=== PATIENT | female | born 1940 | race Caucasian/White ===

== ENCOUNTER → 2016-08-21 | Outpatient (CLI) | payer OTHER ==
[~2016-08-21] MED LIST: ACET-1138 PO; ASCO250T4 PO; CALC600T9 PO; CLOB-65 EXT; COEN30CA3 PO; FRRG PO; MAGN400T24 PO; MULTCAP42 PO; NCYSR50 PO; OMEP20TA PO; PERP2TAB6 PO; POLY335025 PO; RXC5 PO; SENNTAB23 PO; TRIA75TA53 PO; VERA240C2 PO; VITA100C4 PO; WARF1TAB PO
--- NOTE | 2016-08-21 14:17 | MAMMOGRAPHY REPORT ---
BILATERAL DIGITAL SCREENING MAMMOGRAM WITH CAD: 08/21/2016 CLINICAL HISTORY: Routine screening. Patient has no complaints. TECHNIQUE: Current study was also evaluated with a Computer Aided Detection (CAD) system. Bilatera l CC and MLO views were obtained. COMPARISON: Comparison is made to exams dated: 08/07/2015 mammogram, 02/17/2013 mammogram, 07/20/2014 mammogram, and 07/01/2011 mammogram - [facility]. BREAST COMPOSITION: There are scattered areas of fibroglandular density in both breasts. FINDINGS: No suspicious masses, calcifications, or areas of architectural distortion are noted in e ither breast. There has been no significant interval change compared to prior exams. Scattered bilat eral benign-appearing calcifications are not significantly changed. IMPRESSION: ACR BI-RADS CATEGORY 2: BENIGN There is no mammographic evidence of malignancy. A 1 year screening mammogram is recommended. The p atient will receive written notification of the results. Approximately 10% of breast cancers are not detected with mammography. A negative mammographic repor t should not delay biopsy if a clinically suggestive mass is present. Jess Allen M.D. ah/:08/21/2016 10:38:34 Bulk Mail Clerk: Clarice CONTRERAS(Tino)(Gabriela), [facility] letter sent: Normal 1/2 BI-RADS Code: ACR BI-RADS Category 2: Benign
== END | disposition home or self-care (01) ==
LOC: C.MAMM 10:00
PROVIDERS: ATTEND Family Medicine
DX: Z12.31 Encounter for screening mammogram for malignant neoplasm of breast (principal)

== ENCOUNTER → 2016-09-10 | Outpatient (CLI) | payer OTHER ==
[2016-09-10 12:58] LABS: BASO % 0.3 %; BASO ABS # 0.02 K/uL (0-0.2); COMPLETE YES; EOS % 2.6 %; HEMATOCRIT 45.7 % (37-47); IG% 0.2 %; LYMPH % 33.4 %; LYMPH ABS # 1.92 K/uL (1.2-3.4); MEAN CELL VOLUME 91.2 fL (80-100); MEAN CORPUSCULAR HEMOGLOBIN 30.3 pg (25-34); MEAN CORPUSCULAR HGB CONC 33.3 g/dl (32-36); MEAN PLATELET VOLUME 10.1 fL (7.4-10.4); MONO % 8.2 %; NEUT % 55.3 %; PLATELET COUNT 301 K/uL (130-400); RED BLOOD COUNT 5.01 M/uL (4.2-5.4); WHITE BLOOD COUNT 5.75 K/uL (4.8-10.8)
[2016-09-10 13:24] LABS: ALT/SGPT 24 U/L (12-78); AST/SGOT 19 U/L (15-37); BLOOD UREA NITROGEN 16 mg/dl (7-18); CALCIUM 9.3 mg/dl (8.5-10.1); CARBON DIOXIDE 29 mmol/L (21-32); CHLORIDE 100 mmol/L (98-107); CHOLESTEROL 260 mg/dl (0-200); CREATININE 0.97 mg/dl (0.60-1.20); GLUCOSE 112 mg/dl (70-99); POTASSIUM 3.7 mmol/L (3.5-5.1); SODIUM 138 mmol/L (136-145)
[2016-09-10 13:36] LABS: ALKALINE PHOSPHATASE 92 U/L (45-117); CHOLESTEROL/HDL RATIO 4.4; HDL CHOLESTEROL 59 mg/dl; LDL CHOLESTEROL CALCULATED 150 mg/dl; TRIGLYCERIDES 253 mg/dl (0-150); VERY LOW DENSITY LIPOPROT CALC 51 mg/dl
== END | disposition home or self-care (01) ==
LOC: C.LABPVFM 07:45
PROVIDERS: ATTEND Family Medicine
DX: F32.9 Major depressive disorder, single episode, unspecified (principal); I10 Essential (primary) hypertension; E78.00 Pure hypercholesterolemia, unspecified

== ENCOUNTER → 2017-03-14 | Outpatient (CLI) | payer OTHER ==
[2017-03-14 13:30] LABS: ALT/SGPT 23 U/L (12-78); AST/SGOT 18 U/L (15-37); BLOOD UREA NITROGEN 15 mg/dl (7-18); BUN/CREATININE RATIO 15.7 (10-20); CALCIUM 9.4 mg/dl (8.5-10.1); CARBON DIOXIDE 30 mmol/L (21-32); CHLORIDE 101 mmol/L (98-107); CHOLESTEROL 245 mg/dl (0-200); CREATININE 0.94 mg/dl (0.60-1.20); GLUCOSE 112 mg/dl (70-99); POTASSIUM 3.8 mmol/L (3.5-5.1); SODIUM 139 mmol/L (136-145); TRIGLYCERIDES 259 mg/dl (0-150); VERY LOW DENSITY LIPOPROT CALC 52 mg/dl
[2017-03-14 13:31] LABS: ALKALINE PHOSPHATASE 83 U/L (45-117); CHOLESTEROL/HDL RATIO 4.6; HDL CHOLESTEROL 53 mg/dl; LDL CHOLESTEROL CALCULATED 140 mg/dl
== END | disposition home or self-care (01) ==
LOC: C.LABPVFM 08:28
PROVIDERS: ATTEND Family Medicine
DX: R00.2 Palpitations (principal); E78.00 Pure hypercholesterolemia, unspecified; I10 Essential (primary) hypertension

== ENCOUNTER 2017-07-08 13:32 | Emergency (ER) | payer OTHER ==
[~2017-07-08] VITALS: Ht 152.4 cm; Wt 74.0 kg
[2017-07-08 13:34] VITALS: TEMP 36.4; Ht 152.4 cm; Wt 74.0 kg
--- NOTE | 2017-07-08 14:22 | EMERGENCY ROOM VISIT NOTE ---
History Report prepared by Dolores: Jesus Wagner Under the Supervision of: Dr. Omero Graham M.D. First contact with patient: 14:17 Chief Complaint: CONSTIPATION Stated Complaint: CONSTIPATION X 1 WEEK Nursing Triage Summary: pt ot the ED with 1 wk of no BM since her colonoscopy 1 wk ago pt has back and abd pain no n/v History of Present Illness The patient is a 77 year old female who presents to the Emergency Room with complaints of constipation for 1 week ago. She had a colonoscopy done 1 week ago and had a liquid bowel movement. She reports that she is taking Ibuprofen to manage the pain in her left knee. She endorses low back pain and limited PO intake. She denies nausea and vomiting. The patient reports she has tried an enema, Colace, and Miralax with no relief despite straining herself. Of note the patient has a history of arthritis and colon resection surgery. Source of History: patient Onset: 1 week ago Position: abdomen Quality: other (constipation for 1 week) Timing: constant Modifying Factors (Relieving): ibuprofen (manage pain in left knee) Associated Symptoms: + back pain (lower back pain), No nausea, No vomiting Note: limited per os intake Review of Systems See HPI for pertinent positives and negatives. A total of ten systems were reviewed and were otherwise negative. Past Medical & Surgical Medical Problems: (1) Hypercholesterolemia (2) Hypertension Hypertension, Hypercholesterolemia, bowel resection Family History Colon cancer, breast cancer, diabetes, arthritis Social History Smoking Status: Never Smoker Alcohol Use: occasionally Marital Status: Occupation Status: retired Current/Historical Medications Scheduled Ascorbic Acid (Ascorbic Acid), 1 TAB PO DAILY Aspirin (Aspirin Ec), 81 MG PO MWF Calcium Carbonate-Vitamin D (Calcium + D), 1 TAB PO DAILY Cyanocobalamin (Vitamin B-12), 1,000 MCG PO MF Docusate Sodium (Docusate Sodium), 1 CAP PO BID Ibuprofen (Advil), 200-600 MG PO DAILY Linaclotide (Linzess), 2 CAP PO BID Magnesium Oxide (Mag-Ox), 400 MG PO BID Metoprolol Tartrate (Lopressor) (Lopressor), 0.5 TAB PO BID Multivitamin (Multivitamin), 1 TAB PO DAILY Perphenazine-Amitriptyline (Perphenazine/Amitriptylin), 2-25 MG PO QID Polyethylene Glycol 3350 (Miralax), 17 GM PO BID Ranitidine (Zantac), 150 MG PO BID Triamterene/Hctz (Maxzide 75MG/50MG), 1 TAB PO DAILY Scheduled PRN Diclofenac Sodium (Topical) (Voltaren 1% Top Gel), 4 GM TOP QID PRN for Pain Allergies Coded Allergies: Morphine (Verified Allergy, Mild, RASH & HALLUCINATIONS--NO TRUE ALLERGY PER DR MARTINES, 07/08/17) Physical Exam Vital Signs Date Time Temp Pulse Resp B/P (MAP) Pulse Ox O2 Delivery O2 Flow Rate FiO2 07/08/17 21:37 67 154/78 96 07/08/17 18:47 78 21 172/81 96 Room Air 07/08/17 17:50 82 16 172/81 97 Room Air 07/08/17 16:21 83 07/08/17 15:35 83 19 191/101 98 Room Air 07/08/17 13:34 36.4 93 18 181/100 96 Room Air Physical Exam GENERAL: Awake, alert, uncomfortable appearing, in no distress HENT: Normocephalic, atraumatic. Oropharynx unremarkable. EYES: Normal conjunctiva. Sclera non-icteric. NECK: Supple. No nuchal rigidity. FROM. No JVD. RESPIRATORY: Clear to auscultation. CARDIAC: Regular rate, normal rhythm. Extremities warm and well perfused. Pulses equal. ABDOMEN: Soft, mild abdominal distension. No tenderness to palpation. No rebound or guarding. No masses. Mild lower abdominal discomfort. No peritoneal signs. RECTAL: Deferred. MUSCULOSKELETAL: Chest examination reveals no tenderness. The back is symmetrical on inspection without obvious abnormality. There is no CVA tenderness to palpation. No joint edema. LOWER EXTREMITIES: Calves are equal size bilaterally and non-tender. No edema. No discoloration. NEURO: Normal sensorium. No sensory or motor deficits noted. SKIN: No rash or jaundice noted. Medical Decision & Procedures ER Provider Diagnostic Interpretation: Radiology results as stated below per my review and radiologist interpretation: CHEST ONE VIEW PORTABLE CLINICAL HISTORY: Pain, radiating to the abdomen. Constipation. COMPARISON STUDY: 02/08/2014 FINDINGS: The cardiac and mediastinal contours are normal. There is no evidence of focal pulmonary consolidation. There is no evidence of failure. No pleural effusions are visualized.[ There is dense calcification of the mitral valve annulus. There is no free intraperitoneal air. IMPRESSION: No active disease in the chest. Electronically signed by: John Natarajan M.D. 07/08/2017 3:03 PM ABD/PELVIS IV CONTRAST ONLY CT DOSE: 629.09 mGycm HISTORY: Pain. Constipation. abd pain/constipation TECHNIQUE: Multiaxial CT images of the abdomen and pelvis were performed following the use of intravenous contrast. A dose lowering technique was utilized adhering to the principles of ALARA. COMPARISON STUDY: None. FINDINGS: Lung bases are clear. Liver spleen and pancreas are unremarkable. The kidneys enhance uniformly. Mild increase in fecal load throughout the colon. No evidence for fecal impaction. Bladder is midline. Anastomotic line mid sigmoid colon. Smaller of sludge and/or gravel within the gallbladder fundus. No biliary ductal distention. Bladder is midline. IMPRESSION: 1. Increased fecal load throughout the colon consistent with a component of fecal stasis. 2. Small amount of gravel and/or sludge within the inferior aspect of the gallbladder lumen. 3. Otherwise negative study. The above report was generated using voice recognition software. It may contain grammatical, syntax or spelling errors. Electronically signed by: Hernan Shelley M.D. 07/08/2017 4:23 PM Laboratory Results 07/08/17 15:00 Red Blood Count 4.24, Mean Corpuscular Volume 92.7, Mean Corpuscular Hemoglobin 30.9, Mean Corpuscular Hemoglobin Concent 33.3, Mean Platelet Volume 9.5, Neutrophils (%) (Auto) 67.5, Lymphocytes (%) (Auto) 23.0, Monocytes (%) (Auto) 5.9, Eosinophils (%) (Auto) 2.8, Basophils (%) (Auto) 0.5, Neutrophils # (Auto) 4.34, Lymphocytes # (Auto) 1.48, Monocytes # (Auto) 0.38, Eosinophils # (Auto) 0.18, Basophils # (Auto) 0.03 07/08/17 15:00 Test 07/08/17 15:00 07/08/17 15:11 White Blood Count 6.43 K/uL (4.8-10.8) Red Blood Count 4.24 M/uL (4.2-5.4) Hemoglobin 13.1 g/dL (12.0-16.0) Hematocrit 39.3 % (37-47) Mean Corpuscular Volume 92.7 fL (80-100) Mean Corpuscular Hemoglobin 30.9 pg (25-34) Mean Corpuscular Hemoglobin Concent 33.3 g/dl (32-36) Platelet Count 265 K/uL (130-400) Mean Platelet Volume 9.5 fL (7.4-10.4) Neutrophils (%) (Auto) 67.5 % Lymphocytes (%) (Auto) 23.0 % Monocytes (%) (Auto) 5.9 % Eosinophils (%) (Auto) 2.8 % Basophils (%) (Auto) 0.5 % Neutrophils # (Auto) 4.34 K/uL (1.4-6.5) Lymphocytes # (Auto) 1.48 K/uL (1.2-3.4) Monocytes # (Auto) 0.38 K/uL (0.11-0.59) Eosinophils # (Auto) 0.18 K/uL (0-0.5) Basophils # (Auto) 0.03 K/uL (0-0.2) RDW Standard Deviation 42.8 fL (36.4-46.3) RDW Coefficient of Variation 12.6 % (11.5-14.5) Immature Granulocyte % (Auto) 0.3 % Immature Granulocyte # (Auto) 0.02 K/uL (0.00-0.02) Anion Gap 8.0 mmol/L (3-11) Est Creatinine Clear Calc Drug Dose 35.0 ml/min Estimated GFR () 50.0 Estimated GFR (Non- 43.1 BUN/Creatinine Ratio 16.3 (10-20) Calcium Level 9.5 mg/dl (8.5-10.1) Total Bilirubin 0.3 mg/dl (0.2-1) Direct Bilirubin < 0.1 mg/dl (0-0.2) Aspartate Amino Transf (AST/SGOT) 18 U/L (15-37) Alanine Aminotransferase (ALT/SGPT) 21 U/L (12-78) Alkaline Phosphatase 97 U/L (45-117) Total Protein 7.2 gm/dl (6.4-8.2) Albumin 3.5 gm/dl (3.4-5.0) Lipase 258 U/L (73-393) Bedside Lactic Acid Venous 1.08 mmol/L (0.90-1.70) Laboratory results reviewed by me Medications Administered Medications (Trade) Dose Ordered Sig/Ruma Route Start Time Stop Time Status Last Admin Dose Admin Sodium Chloride 1,000 ml @ 999 mls/hr Q1H1M STAT IV 07/08/17 14:36 07/08/17 15:36 DC 07/08/17 15:34 999 MLS/HR Fentanyl Citrate (Fentanyl Inj) 50 mcg NOW STAT IV 07/08/17 14:36 07/08/17 14:38 DC 07/08/17 15:33 50 MCG Metoclopramide HCl (Reglan Inj) 10 mg NOW STAT IV 07/08/17 17:18 07/08/17 17:19 DC 07/08/17 17:50 10 MG Miscellaneous Medication (Milk And Molasses Enema) 1 ea NOW STAT MT 07/08/17 17:18 07/08/17 17:19 DC 07/08/17 18:46 1 EA ED Course 1512: I reviewed the patient's labs. 2028: I spoke to the mattress spring encaser about the patient's insurance coverage. Medical Decision I reviewed the patient's past medical history, medications, and the nursing notes as described above. The patient's presentation and history were concerning for bowel obstruction, ischemic bowel, and constipation. Patient is a 77-year-old woman with a past medical history of prior bowel resection status post reanastomosis remotely presents emergency Department with 1 week of constipation after having a colonoscopy per history of present illness. On arrival the patient is uncomfortable, but in no acute distress, afebrile with stable vital signs. He is mild abdominal distention but abdomen is soft, lower abdominal discomfort but no discrete tenderness or peritoneal signs. Lactate within normal limits. Labs otherwise unremarkable including WBC within normal limits. CT demonstrates "increased fecal load throughout the colon consistent with a component of fecal stasis." Thus, milk and molasses enema ordered. Subsequently patient was able to have small BM but with only marginal relief. Given reassuring w/u, no criteria for admission at this time. Patient was reassured that her enema may need more time to take effect and so will d/c with plan for patient return if she does not feel improvement tomorrow. Findings and plan for follow-up reviewed with patient. Patient agreeable and d/c'd per discharge instructions. Impression Primary Impression: Constipation Scribe Attestation The scribe's documentation has been prepared under my direction and personally reviewed by me in its entirety. I confirm that the note above accurately reflects all work, treatment, procedures, and medical decision making performed by me. Departure Information Dispostion Home / Self-Care Referrals Andreas Reeder M.D. (PCP) Patient Instructions ED Constipation, My [facility] Additional Instructions Please follow up with your primary care physician and your GI specialist in the next 1-3 days for re-evaluation. You were found to have constipation. Otherwise, your exam, CT scan, and lab results did not show signs of an emergent condition at this time. Continue to take Colace. Repeat enema at home if you do not improve after today's enema. Return to the emergency department for worsening symptoms as described in the accompanying instructions.
[2017-07-08] MEDS ORDERED: SODIUM CHLORIDE 0.9% 1000ML 1,000 ML IV STA (14:36)
[2017-07-08] MEDS ORDERED: FENTANYL CITRATE INJ 50 MCG/1 ML 2 ML VIAL IV STA (14:36)
[2017-07-08] MEDS ORDERED: OPTIRAY 320 IV PRN (15:00)
--- NOTE | 2017-07-08 15:04 | DIAGNOSTIC IMAGING REPORT ---
CHEST ONE VIEW PORTABLE CLINICAL HISTORY: Pain, radiating to the abdomen. Constipation. COMPARISON STUDY: 02/08/2014 FINDINGS: The cardiac and mediastinal contours are normal. There is no evidence of focal pulmonary consolidation. There is no evidence of failure. No pleural effusions are visualized.[ There is dense calcification of the mitral valve annulus. There is no free intraperitoneal air. IMPRESSION: No active disease in the chest. Electronically signed by: John Natarajan M.D. 07/08/2017 3:03 PM Dictated Date/Time: 07/08/2017 3:02 PM
[2017-07-08 15:31] LABS: BASO % 0.5 %; BASO ABS # 0.03 K/uL (0-0.2); COMPLETE YES; EOS % 2.8 %; HEMATOCRIT 39.3 % (37-47); IG% 0.3 %; LYMPH ABS # 1.48 K/uL (1.2-3.4); MEAN CELL VOLUME 92.7 fL (80-100); MEAN CORPUSCULAR HEMOGLOBIN 30.9 pg (25-34); MEAN CORPUSCULAR HGB CONC 33.3 g/dl (32-36); MEAN PLATELET VOLUME 9.5 fL (7.4-10.4); MONO % 5.9 %; NEUT % 67.5 %; PLATELET COUNT 265 K/uL (130-400); RED BLOOD COUNT 4.24 M/uL (4.2-5.4); WHITE BLOOD COUNT 6.43 K/uL (4.8-10.8)
[2017-07-08 15:41] LABS: ALT/SGPT 21 U/L (12-78); BLOOD UREA NITROGEN 20 mg/dl (7-18); BUN/CREATININE RATIO 16.3 (10-20); CALCIUM 9.5 mg/dl (8.5-10.1); CARBON DIOXIDE 29 mmol/L (21-32); CHLORIDE 102 mmol/L (98-107); CREATININE 1.21 mg/dl (0.60-1.20); GLUCOSE 106 mg/dl (70-99); POTASSIUM 3.8 mmol/L (3.5-5.1); SODIUM 139 mmol/L (136-145)
[2017-07-08 15:44] LABS: ALKALINE PHOSPHATASE 97 U/L (45-117); AST/SGOT 18 U/L (15-37)
[2017-07-08] MEDS ORDERED: ZNTT/150 PO (15:55)
[2017-07-08] MEDS ORDERED: ASCO100061 PO (15:55)
[2017-07-08] MEDS ORDERED: MAGN400T6 PO (15:55)
[2017-07-08] MEDS ORDERED: MULT-506 PO (15:55)
[2017-07-08] MEDS ORDERED: ASPI81TA28 PO (15:55)
[2017-07-08] MEDS ORDERED: DOCU100C31 PO (15:55)
[2017-07-08] MEDS ORDERED: SIMV10TA2 PO (15:55)
[2017-07-08] MEDS ORDERED: METO25TA56 PO (15:55)
[2017-07-08] MEDS ORDERED: DICL1GEL12 TOP (15:55)
[2017-07-08] MEDS ORDERED: GLUCTAB7 PO (15:55)
[2017-07-08] MEDS ORDERED: LINA72CA PO (16:22)
[2017-07-08] MEDS ORDERED: IBUP-1050 PO (16:22)
[2017-07-08] MEDS ORDERED: CYAN10005 PO (16:22)
[2017-07-08] MEDS ORDERED: POLY335019 PO (16:22)
--- NOTE | 2017-07-08 16:24 | DIAGNOSTIC IMAGING REPORT ---
ABD/PELVIS IV CONTRAST ONLY CT DOSE: 629.09 mGycm HISTORY: Pain. Constipation. abd pain/constipation TECHNIQUE: Multiaxial CT images of the abdomen and pelvis were performed following the use of intravenous contrast. A dose lowering technique was utilized adhering to the principles of ALARA. COMPARISON STUDY: None. FINDINGS: Lung bases are clear. Liver spleen and pancreas are unremarkable. The kidneys enhance uniformly. Mild increase in fecal load throughout the colon. No evidence for fecal impaction. Bladder is midline. Anastomotic line mid sigmoid colon. Smaller of sludge and/or gravel within the gallbladder fundus. No biliary ductal distention. Bladder is midline. IMPRESSION: 1. Increased fecal load throughout the colon consistent with a component of fecal stasis. 2. Small amount of gravel and/or sludge within the inferior aspect of the gallbladder lumen. 3. Otherwise negative study. The above report was generated using voice recognition software. It may contain grammatical, syntax or spelling errors. Electronically signed by: Hernan Shelley M.D. 07/08/2017 4:23 PM Dictated Date/Time: 07/08/2017 4:11 PM
[2017-07-08] MEDS ORDERED: MILK AND MOLASSES ENEMA PR STA (17:18)
[2017-07-08] MEDS ORDERED: METOCLOPRAMIDE HCL INJ 5 MG/ML 2 ML VIAL IV STA (17:18)
[2017-07-08] MEDS ORDERED: SOD PHOSPHATE/SOD BIPHOSPHATE ENEMA 132 ML BTL PR STA (21:25)
[2017-07-08 21:37] VITALS: BP 154/78; PULSE 67; O2SAT 96
== END 2017-07-08 21:35 | disposition home or self-care (01) ==
LOC: C.EDB 13:33
DX: K59.00 Constipation, unspecified (principal); I10 Essential (primary) hypertension; E78.00 Pure hypercholesterolemia, unspecified; Z79.82 Long term (current) use of aspirin; Z79.899 Other long term (current) drug therapy; Z88.5 Allergy status to narcotic agent; Z80.0 Family history of malignant neoplasm of digestive organs; Z80.9 Family history of malignant neoplasm, unspecified; Z80.3 Family history of malignant neoplasm of breast; Z83.3 Family history of diabetes mellitus

== ENCOUNTER 2017-09-02 07:15 | Inpatient (IN) | payer OTHER ==
[2017-08-18 11:58] VITALS: BMI 32.0
--- NOTE | 2017-08-18 12:41 | PAT Medication Instructions ---
Service Date Aug 18, 2017. Current Home Medication List Acetaminophen (Tylenol), 1,000 MG PO BID Aspirin (Aspirin Ec), 81 MG PO MWF Cholecalciferol (Vitamin D3), 1 CAP PO QAM Cyanocobalamin (Vitamin B-12), 1,000 MCG PO QAM Diclofenac Sodium (Topical) (Voltaren 1% Top Gel), 4 GM TOP QID PRN for Pain Docusate Sodium (Docusate Sodium), 1 CAP PO BID Linaclotide (Linzess), 2 CAP PO QAM Metoprolol Tartrate (Lopressor) (Lopressor), 0.5 TAB PO BID Multivitamin (Multivitamin), 1 TAB PO QPM Perphenazine-Amitriptyline (Perphenazine/Amitriptylin), 2-25 MG PO QID Polyethylene Glycol 3350 (Miralax), 17 GM PO BID Polyvinyl Alcohol-Povidone (Op (Refresh), 1 DROP OPB QAM Ranitidine (Zantac), 150 MG PO BID Triamterene/Hctz (Maxzide 75MG/50MG), 1 TAB PO QAM [Magnesium], 250 MG PO QPM [Vitamin C], 1 TAB PO QAM Medication Instructions For Your Scheduled Surgery - Continue as directed: Aspirin (Aspirin Ec), 81 MG PO MWF - Hold the following medications 24 hours prior to surgery: Diclofenac Sodium (Topical) (Voltaren 1% Top Gel), 4 GM TOP QID PRN for Pain - Hold the following medications the morning of surgery: [Vitamin C], 1 TAB PO QAM Linaclotide (Linzess), 2 CAP PO QAM Docusate Sodium (Docusate Sodium), 1 CAP PO BID Polyethylene Glycol 3350 (Miralax), 17 GM PO BID Cholecalciferol (Vitamin D3), 1 CAP PO QAM Cyanocobalamin (Vitamin B-12), 1,000 MCG PO QAM Triamterene/Hctz (Maxzide 75MG/50MG), 1 TAB PO QAM - Take the following medications the morning of surgery with a sip of water OTHERWISE NOTHING TO EAT OR DRINK AFTER MIDNIGHT: Metoprolol Tartrate (Lopressor) (Lopressor), 0.5 TAB PO BID Perphenazine-Amitriptyline (Perphenazine/Amitriptylin), 2-25 MG PO QID Acetaminophen (Tylenol), 1,000 MG PO BID (may take if needed up to 4 hours prior to surgery) Ranitidine (Zantac), 150 MG PO BID Polyvinyl Alcohol-Povidone (Op (Refresh), 1 DROP OPB QAM - Take the following medications as scheduled the night before surgery: Multivitamin (Multivitamin), 1 TAB PO QPM [Magnesium], 250 MG PO QPM Docusate Sodium (Docusate Sodium), 1 CAP PO BID Metoprolol Tartrate (Lopressor) (Lopressor), 0.5 TAB PO BID Perphenazine-Amitriptyline (Perphenazine/Amitriptylin), 2-25 MG PO QID Polyethylene Glycol 3350 (Miralax), 17 GM PO BID Acetaminophen (Tylenol), 1,000 MG PO BID Ranitidine (Zantac), 150 MG PO BID If you have any questions please call us at [phone] or [phone] or [phone]
[2017-08-18 13:44] LABS: PTT PATIENT 26.1 SECONDS (21.0-31.0)
--- NOTE | 2017-08-28 08:25 | HISTORY & PHYSICAL EXAMINATION ---
DATE OF ADMISSION: 09/02/2017 CHIEF COMPLAINT: Left knee pain and instability. HISTORY OF PRESENT ILLNESS: This 77-year-old female well known to me from previous right knee replacement done about 3 years ago. She has done well from that side. She has long history of left knee pain and discomfort that has gotten worse over time. This also has become unstable with the fact that she has fallen a couple times due to her knee giving out. She has been treated extensively by Dr. Calhoun without adequate relief and she would like to proceed with knee replacement. The patient does have a lot of history of GI issues and a part of her colon resected. She comes in with some instructions from Dr. Albarran as far as her postoperative GI management. PAST MEDICAL HISTORY: 1. Hypertension. 2. Elevated cholesterol. 3. Irregular heartbeat. 4. Depression. 5. Intermittent anemia. 6. Arthritis. 7. Low back pain/sciatica 8. Gastroesophageal reflux disease. 9. Hiatal hernia. 10. Mild obesity with a BMI of 32. 11. Colon cancer, status post resection. PAST SURGICAL HISTORY: 1. Bowel resection. 2. Cyst removed from uterus. 3. Hysterectomy. 4. D&C. 5. Right total knee replacement done in March of 2014. ALLERGIES: MORPHINE WHICH CAUSES NAUSEA AND VOMITING AND RATIONAL HALLUCINATIONS. Not A TRUE ALLERGY, BUT SIDE EFFECTS. CURRENT MEDICINES: Include: 1. Once a day, vitamin 2. Vitamin B12. 3. Magnesium. 4. Stool softener. 5. Vitamin D3. 6. Linzess 145 mcg once a day. 7. Metoprolol half tablet twice a day. 8. Triamterne/hydrochlorothiazide 70/50 once a day. 9. Ranitidine twice a day. 10. Amanda aspirin times a week. 11. MiraLax, have a capsule twice a day. SOCIAL HISTORY: A 77-year-old white female who lives by herself. She is hoping to be discharged to [facility] postoperatively. REVIEW OF SYSTEMS: Negative for diabetes, neurologic problems, vascular problems, bleeding disorders. No chest pain or shortness of breath. No history of DVT or PE. She has had issues with chronic constipation managed by Dr. Albarran. PHYSICAL EXAMINATION: GENERAL: Reveals a healthy, pleasant elderly female. She looks to be in good health. HEENT: Benign. NECK: Supple. No lymphadenopathy. LUNGS: Clear to auscultation. HEART: Regular rate and rhythm. ABDOMEN: Soft, nontender, nondistended. EXTREMITIES: Grossly neurovascularly intact except as follows: Examination of the left knee reveals the patient walks with valgus alignment to her knee. It comes in using a cane. She has a small knee effusion. Range of motion is about 10 degrees short of full extension to 90 degrees of flexion with a pretty stiff knee. No pain with hip motion. X-RAYS: X-ray of the left knee reviewed. She has advanced left knee DJD. She has complete loss of her lateral joint space. She has valgus deformity to her knee. Right knee looks to be in good position. ASSESSMENT: A 77-year-old white female with advanced left knee degenerative joint disease unresponsive to conservative care. Also has quite a bit of instability in this knee. PLAN: We talked about treatment. She would like to have her left knee replaced. We will take her to the operating room and do a left total knee replacement. The risks and benefits of this procedure were explained to the patient including but not limited to DVT, PE, , infection, neurological injury, vascular injury, bleeding problems, pain, limited range of motion, stiffness, failure to relieve her symptoms, incomplete relief of symptoms, need for further surgery in the future, fracture, leg length inequality, nerve palsy, etc. The patient understands and desires to proceed. Informed consent was obtained. One of her biggest concerns was constipation. We will try and hold any oxycodone and hydrocodone and use tramadol and Toradol for pain control. Dr. Albarran sent a note saying no Senokot. She should take her MiraLax twice a day with juice and Linzess in the morning before meals. We will try and manage it that way. As far as discharge plans, she is hoping to be discharged to [facility] for a brief rehab stay.
[2017-09-02] VITALS (8 sets, daily range): BP systolic 106–151; BP diastolic 65–74; PULSE 74–92; TEMP 36.4–37; O2SAT 94–100; Ht 152.4 cm; Wt 74.0 kg
[~2017-09-02] VITALS: Ht 152.4 cm; Wt 74.0 kg
[~2017-09-02 07:15] MED LIST changes: -ACET-1138 PO; +ACET-1256 PO; +ACETAMINOPHEN 500 MG TAB PO SCH; -ASCO250T4 PO; +ASPI81TA28 PO; +ATROPINE SULFATE 0.1 MG/ML 5ML SYR IV PRN; +BUPIVACAINE LIPOSOME 266 MG, BUPIVACAINE/EPINEPHRINE INJ 50 ML, SODIUM CHLORIDE 0.9% PF... INFIL SCH; -CALC600T9 PO; +CEFAZOLIN 2000MG IV PUSH 10 ML IV SCH; +CHOL2000 PO; -CLOB-65 EXT; -COEN30CA3 PO; +CYAN10005 PO; +DICL1GEL12 TOP; +DOCU100C31 PO; +EpHEDrine SULFATE INJ 50 MG/ML AMP IV PRN; +FAMOTIDINE 20 MG TAB PO SCH; +FENTANYL CITRATE INJ 50 MCG/1 ML 2 ML VIAL IV PRN; -FRRG PO; +GABAPENTIN 300 MG CAP PO SCH; +HYDROmorphone INJ 1 MG/ML SYR IV PRN; +LABETALOL HCL IV 5 MG/ML 20ML IV PRN; +LACTATED RINGER'S 1000ML 1,000 ML IV SCH; +LACTATED RINGER'S 1000ML 500 ML IV SCH; +LACTATED RINGER'S 1000ML IV SCH; +LINA72CA PO; -MAGN400T24 PO; +MAGNESIUM PO; +METO25TA56 PO; +METOCLOPRAMIDE HCL 10 MG TAB PO SCH; +MULT-506 PO; -MULTCAP42 PO; -NCYSR50 PO; -OMEP20TA PO; +ONDANSETRON INJ 2 MG/ML 2 ML VIAL IV PRN; +PHENYLEPHRINE 100MCG/ML 5ML SYR IV PRN; +POLY335019 PO; -POLY335025 PO; +POLYSOL OPB; -RXC5 PO; -SENNTAB23 PO; +TRANEXAMIC ACID INJ 1,000 MG in SYRINGE 0 ML IV SCH; -VERA240C2 PO; -VITA100C4 PO; +VITAMIN C PO; -WARF1TAB PO; +ZNTT/150 PO
[2017-09-02] MEDS ORDERED: MIDAZOLAM HCL 1 MG/ML 2ML VIAL ONE ×2 (07:47→09:07)
[2017-09-02] MEDS ORDERED: FENTANYL CITRATE INJ 50 MCG/1 ML 2 ML VIAL ONE (07:47)
--- NOTE | 2017-09-02 08:29 | History & Physical Bridge Note ---
H&P Re-Evaluation Bridge Note: I have examined the patient, reviewed the History & Physical and in the interval since the performance of the History & Physical I have noted the following changes of clinical significance: No changes noted
[2017-09-02] MEDS ORDERED: BUPIVACAINE 0.5 % 5 MG/1 ML PF 10ML VIAL ONE (08:57)
[2017-09-02] MEDS ORDERED: BUPIVACAINE 0.25% 30 ML VIAL ONE (08:57)
[2017-09-02] MEDS ORDERED: BUPIVACAINE/EPINEPHRINE 0.25% 1:200,000 30 ML VIAL ONE (09:09)
[2017-09-02] MEDS ORDERED: BACITRACIN 50000 UNIT VIAL ONE (09:09)
[2017-09-02] MEDS ORDERED: SODIUM CHLORIDE 0.9% PF 50 ML VIAL ONE (09:09)
[2017-09-02] MEDS ORDERED: BUPIVACAINE LIPOSOME 1/3% 266 MG/20 ML VIAL INFIL ONE (09:09)
[2017-09-02] MEDS ORDERED: PROPOFOL IV EMULSION 10 MG/ML 20 ML VIAL IV ONE (10:00)
[2017-09-02] MEDS ORDERED: EpHEDrine SULFATE 50MG/5ML SYR ONE (10:00)
--- NOTE | 2017-09-02 11:25 | [facility] Post Operative Brief Note ---
Immediate Operative Summary Operative Date Sep 02, 2017. Pre-Operative Diagnosis Left knee degenerative joint disease Post-Operative Diagnosis same as preop Procedure(s) Performed Left total knee arthroplasty Surgeon Dr. Bustillos Operator Surgeon(s) Jose Carlos Parra PA-C Estimated Blood Loss 50 ml Findings Consistent with Post-Op Diagnosis Specimens A: Left knee bone and tissue Drains None Anesthesia Type MAC Spinal Regional Complication(s) none Disposition Accompanied Pt To Recover: no Disposition: Recovery Room / PACU
[2017-09-02] MEDS ORDERED: ZOLPIDEM TARTRATE 5 MG TAB PO PRN (11:30)
[2017-09-02] MEDS ORDERED: SILVER SULFADIAZINE 1% CR 50 GM JAR EXT PRN (11:30)
[2017-09-02] MEDS ORDERED: BISACODYL 10 MG SUPP PR PRN (11:30)
[2017-09-02] MEDS ORDERED: MAGNESIUM HYDROXIDE SUSP 30 ML UDC PO PRN (11:30)
[2017-09-02] MEDS ORDERED: METOCLOPRAMIDE HCL INJ 5 MG/ML 2 ML VIAL IV PRN (11:30)
[2017-09-02] MEDS ORDERED: ALUMINUM/MAGNESIUM/SIMETH (MAALOX MAX) 30 ML UDC PO PRN (11:30)
--- NOTE | 2017-09-02 11:59 | DIAGNOSTIC IMAGING REPORT ---
L KNEE 1 OR 2 VIEWS ROUTINE CLINICAL HISTORY: Degenerative arthritis. Postop study COMPARISON: Outside radiograph dated 06/12/2017 DISCUSSION: There are postsurgical changes of a total left knee arthroplasty and patellar resurfacing. The femoral and tibial components appear well seated. Overlying skin ronnie are evident. There is air within soft tissues consistent with recent surgery. IMPRESSION: Postsurgical changes of a total left knee arthroplasty. Electronically signed by: John Natarajan M.D. 09/02/2017 11:57 AM Dictated Date/Time: 09/02/2017 11:56 AM
--- NOTE | 2017-09-02 12:05 | Anesthesiology Progress Note ---
Anesthesia Post Op Note Date & Time Sep 02, 2017 at 12:04 Vital Signs Pain Intensity: 0 Vital Signs Past 12 Hours Date Time Temp Pulse Resp B/P (MAP) Pulse Ox O2 Delivery O2 Flow Rate FiO2 09/02/17 11:50 36.2 82 17 106/52 98 Nasal Cannula 2 09/02/17 11:40 79 19 111/56 98 Nasal Cannula 2 09/02/17 11:32 36.1 78 16 101/54 100 Oxymask 10 09/02/17 08:20 37 74 18 151/74 94 Room Air Notes Mental Status: alert / awake / arousable, participated in evaluation Nausea / Vomiting: adequately controlled Pain: adequately controlled Airway Patency, RR, SpO2: stable & adequate BP & HR: stable & adequate Hydration State: stable & adequate Neuraxial Anesthesia: was administered, sensory block is resolving Anesthetic Complications: no major complications apparent
--- NOTE | 2017-09-02 13:00 | OPERATIVE REPORT ---
DATE OF OPERATION: 09/02/2017 SURGEON: Reno Bustillos MD PANAMA HAT SMEARER: ALANNA Cleveland PREOPERATIVE DIAGNOSIS: Left knee degenerative joint disease. POSTOPERATIVE DIAGNOSIS: Same. PROCEDURE PERFORMED: Left cemented posterior stabilized total knee arthroplasty. COMPLICATIONS: None. ESTIMATED BLOOD LOSS: 50 mL. FLUID REPLACEMENT: 1500 mL crystalloid fluid replacement. TOURNIQUET TIME: 67 minutes at 300 mmHg. ANESTHESIA: Spinal with adductor canal block. DRAINS: None. SPECIMENS: Left knee sent for pathology. OPERATIVE INDICATIONS: The patient is a 77-year-old female, very independent, who has had a long history of knee problems. She underwent a right knee replacement about 3-1/2 years ago and has done pretty well from that. Over the year, she developed progressive and persistent pain, discomfort and instability in her left knee. She had a couple falling episodes as well due to her pain and instability. She failed conservative treatment and elected to proceed with operative treatment. OPERATIVE FINDINGS: Operative findings revealed advanced left knee DJD. She had extensive grade 4 changes of the lateral compartment, particularly in the lateral femoral condyle with complete eburnation of the lateral femoral condyle. The rest of her knee joint was pretty well preserved. She did have significant joint effusion and valgus alignment to her knee. OPERATIVE IMPLANTS: Operative implants consisted of: 1. Biomet Vanguard size 57.5 left posterior stabilized femoral component. 2. Biomet size 63 tibial tray. 3. A 10-mm posterior stabilized polyethylene insert. 4. A 28 x 8 all poly patella. OPERATIVE PROCEDURE: The patient was taken to the operating room, identified and placed on the operating table in the supine position. All contact areas were appropriately padded. IV antibiotics were provided by anesthesia team. A spinal anesthetic and adductor canal block had been provided in the holding area. Avelar catheter was placed in sterile fashion. The left thigh tourniquet was then placed and left lower extremity was then prepped and draped in the usual sterile fashion. Left leg was elevated and exsanguinated with Esmarch and tourniquet was placed at 300 mmHg. An anterior approach to the left knee was then performed through a longitudinal incision centered over the patella. Sharp dissection was carried out through the subcutaneous tissues down to the level of the extensor mechanism. A medial parapatellar incision was made. Some subperiosteal dissection was carried out medially. The fat pad was resected from beneath the patellar tendon. The lateral patellofemoral ligament was released. The patella was everted and knee was flexed. The osteophytes were taken off the distal femur. The ACL and PCL were then released from the distal femur and the tibia subluxated anteriorly. The external tibial alignment jig was then placed in the anterior face of the tibia and adjusted 14 mm medially. Proximal tibial cut was made to remove about a millimeter of bone from the most deficient aspect of the medial tibial plateau. The tibia was then sized to a size 63. Attention was then drawn to the femur. The distal femur was entered with a sharp drill. Intramedullary canal was suctioned. A left 5-degree valgus cutting guide was placed. Distal femoral cutting block was pinned in place. Distal femoral cut was made to take an additional 3 mm of bone off the distal femur. The femur was then sized to a size 57.5. We downsized this slightly. The AP cutting block was pinned parallel to the epicondylar axis, which was 6 degrees of external rotation. The anterior cut, anterior chamfer, posterior cut, and posterior chamfer cuts were made. Box cutting guide was placed and adjusted slightly lateral and the box cut was made. The knee was flexed. The remnants of the medial and lateral menisci were excised. The osteophytes were taken off the posterior aspect of the femur. I did release the popliteus in order to equalize the flexion space. I did bring the knee out into extension and the extension gap was already equal and I did not need to do any release of the IT band. A trial femoral component was placed. The tibial tray was pinned in maximum external rotation and drill and stem punch were used to create defect in proximal tibia for the tibial tray. We trialed the knee and a 10-mm insert was just too tight. It was tight in flexion and extension. Therefore, I elected to recut the tibia. All implants were removed. The external tibial alignment jig was then placed in the anterior face of the tibia and I took an additional 3 mm of bone off the proximal tibia. The tibial tray was then pinned and repunched. The femoral component was placed. A 10-mm insert was then placed and the knee was appropriately balanced with the 10-mm insert. She had full extension, slight hyperextension and good flexion. The ligament tension was ideal. Attention was then drawn to the patella. The patella was cleaned of all soft tissues. Patella thickness measured 19 mm and it was cut down to 12. It was sized to a size 28 patella. Lug holes were drilled for the 28 patella. Lateral osteophyte was removed. Patella button was placed. Knee was taken through range of motion and the patella tracked nicely with no thumbs test. Attention was then drawn toward placement of permanent components. All trial components were removed. A bone plug was placed in the distal femur to limit blood loss. A double batch of Palacos G cement was mixed. A left size 57.5 posterior stabilized femoral component, size 63 tibial tray, a 10-mm posterior stabilized polyethylene insert, and a 28 x 8 all poly patella then cemented in place. Knee was brought out into full extension until cement hardened. A final cement check was then performed. Pericapsular tissues were injected with a total of 100 mL of a combination of 20 mL of Exparel, 30 mL of normal saline, and 50 mL of 0.25% Marcaine with epinephrine. We injected a total of about 70 mL of this, as 30 mL had apparently been lost at the back table when the canister spilled. The patient did receive 1 gram of tranexamic acid. The tourniquet was then let down for a tourniquet time of 67 minutes. Hemostasis was assured with use of electrocautery. The wound was once again irrigated. The extensor mechanism was then closed with a combination of #1 PDS suture and #1 Vicryl suture in a [id number] fashion. Extensor mechanism was checked and found to be intact. The subcutaneous tissues were then closed with 2-0 Dexon suture in a buried interrupted fashion. Skin was closed skin ronnie. Leg was then cleaned and dried and a sterile dressing of Xeroform, 4 x 4, sterile cast padding and Jose Cruz bandage were applied. The patient then transferred to the recovery room in stable condition. The patient tolerated the procedure well with no complications. All needle and sponge counts were correct at the end of the operation. I attest to the content of the Intraoperative Record and any orders documented therein. Any exception s are noted below.
[2017-09-02] MEDS: D5W AND 1/2NSS + 20MEQ KCL 1,000 ML IV SCH ×2 (14:02→23:29)
[2017-09-02] MEDS: KETOROLAC TROMETHAMINE 15 MG/ML VIAL IV. SCH ×2 (15:40→20:07)
[2017-09-02] MEDS: ACETAMINOPHEN 500 MG TAB PO SCH ×2 (15:40→21:30)
[2017-09-02] MEDS: HYDROmorphone INJ 0.5 MG/0.5 ML SYR IV PRN (15:41)
[2017-09-02] MEDS ORDERED: TRANEXAMIC ACID INJ 1,000 MG in SODIUM CHLORIDE 0.9% 100ML 100 ML IV SCH (17:30)
[2017-09-02] MEDS: FERROUS GLUCONATE 324 MG TAB PO SCH (17:45)
[2017-09-02] MEDS: ONDANSETRON INJ 2 MG/ML 2 ML VIAL IV PRN (17:53)
[2017-09-02] MEDS: CEFAZOLIN IV 1,000 MG in SYRINGE 0 ML IV SCH (17:54)
[2017-09-02] MEDS ORDERED: DOCUSATE SODIUM 100 MG CAP PO SCH (21:00)
[2017-09-02] MEDS ORDERED: MAGNESIUM 250 MG PO SCH (21:00)
[2017-09-02] MEDS: MULTIVITAMIN TAB PO SCH (21:22)
[2017-09-02] MEDS: POLYETHYLENE (MIRALAX) 17 GM PACK PO SCH (21:23)
[2017-09-02] MEDS: RANITIDINE HCL 150 MG TAB PO SCH (21:24)
[2017-09-02] MEDS: METOPROLOL TARTRATE 25 MG TAB PO SCH (21:24)
[2017-09-02] MEDS: ASPIRIN 325 MG ECTAB PO SCH (21:25)
[2017-09-02] MEDS: DOCUSATE SODIUM 100 MG CAP PO SCH (21:26)
[2017-09-03] MEDS: CEFAZOLIN IV 1,000 MG in SYRINGE 0 ML IV SCH (01:32)
[2017-09-03] MEDS: KETOROLAC TROMETHAMINE 15 MG/ML VIAL IV. SCH ×4 (01:32→19:47)
[2017-09-03 04:01] VITALS: BP 98/59; PULSE 68; TEMP 36.9; O2SAT 93
[2017-09-03] MEDS: ACETAMINOPHEN 500 MG TAB PO SCH ×3 (05:37→22:02)
[2017-09-03 07:03] VITALS: BP 106/66; PULSE 64; TEMP 36.8; O2SAT 96
[2017-09-03] MEDS: POLYETHYLENE (MIRALAX) 17 GM PACK PO SCH ×2 (08:08→22:02)
[2017-09-03 08:10] LABS: HEMATOCRIT 35.1 % (37-47); HEMOGLOBIN 11.8 g/dL (12.0-16.0); MEAN CELL VOLUME 91.2 fL (80-100); MEAN CORPUSCULAR HEMOGLOBIN 30.6 pg (25-34); MEAN CORPUSCULAR HGB CONC 33.6 g/dl (32-36); MEAN PLATELET VOLUME 9.2 fL (7.4-10.4); PLATELET COUNT 251 K/uL (130-400); RED CELL DISTRIBUTION WIDTH CV 12.9 % (11.5-14.5); RED CELL DISTRIBUTION WIDTH SD 42.8 fL (36.4-46.3); WHITE BLOOD COUNT 8.47 K/uL (4.8-10.8)
--- NOTE | 2017-09-03 08:40 | PROGRESS NOTE ---
DATE: 09/03/2017 SUBJECTIVE: A 77-year-old female postop day #1 from a left knee replacement. She is doing well. Pain is controlled. No chest pain or shortness of breath. Not feeling dizzy or lightheaded. No abdominal pain. OBJECTIVE: VITAL SIGNS: Temperature 36.8. Vital signs stable. GENERAL: Physical examination reveals a pleasant, elderly female. She is sitting up at her bedside chair and looks comfortable. EXTREMITIES: Examination of the left leg reveals the dressing to be clean, dry and intact. She can dorsiflex and plantarflex her foot appropriately. She is neurologically intact. LABORATORY DATA: Pending. ASSESSMENT: A 77-year-old female postop day #1 from a left knee replacement, doing pretty well. Pain is controlled. She has got some bowel issues that she is quite concerned about, but things are going okay so far. PLAN: 1. DVT prophylaxis including thigh-high TEDs, SCDs, and aspirin twice a day. 2. PT/OT. Weightbear as tolerated. Left total knee protocol. 3. Pain control. Doing pretty well with current pain management. We are going to use Tylenol and tramadol to avoid confusion issues as well as try and avoid bowel issues. 4. GI motility dysfunction. She is on Colace as well as MiraLax. Unfortunately, we do not have Linzess so her daughter is going to bring that in for. 5. Disposition: She is hoping to be discharged to [facility] for a brief rehab stay. We will get social media marketer work on that this morning. AVA
[2017-09-03 08:42] LABS: CALCIUM 8.4 mg/dl (8.5-10.1); CREATININE 1.12 mg/dl (0.60-1.20); POTASSIUM 3.8 mmol/L (3.5-5.1)
[2017-09-03] MEDS ORDERED: [UNRECOGNIZED DRUG - OTHER] OPB SCH (09:00)
[2017-09-03] MEDS ORDERED: VITAMIN C PO SCH (09:00)
[2017-09-03] MEDS ORDERED: MULTIVITAMIN TAB PO SCH (09:00)
[2017-09-03] MEDS: CYANOCOBALAMIN 500 MCG TAB (VIT B-12) PO SCH (09:01)
[2017-09-03] MEDS: PANTOprazole SOD 40 MG TAB PO SCH (09:02)
[2017-09-03] MEDS: TRIAMTERENE/HCTZ 37.5/25MG TAB PO SCH (09:02)
[2017-09-03] MEDS: CHOLECALCIFEROL 1000 INTER.UNIT TAB PO SCH (09:02)
[2017-09-03] MEDS: RANITIDINE HCL 150 MG TAB PO SCH ×2 (09:02→21:59)
[2017-09-03] MEDS: FERROUS GLUCONATE 324 MG TAB PO SCH ×2 (09:03→17:45)
[2017-09-03] MEDS: DOCUSATE SODIUM 100 MG CAP PO SCH ×2 (09:03→21:59)
[2017-09-03] MEDS: METOPROLOL TARTRATE 25 MG TAB PO SCH ×2 (09:03→21:59)
[2017-09-03] MEDS: ASPIRIN 325 MG ECTAB PO SCH ×2 (09:03→21:59)
[2017-09-03] MEDS: TRAMADOL HCL 50 MG TAB PO PRN ×2 (09:27→19:45)
[2017-09-03] MEDS: D5W AND 1/2NSS + 20MEQ KCL 1,000 ML IV SCH (09:28)
--- NOTE | 2017-09-03 10:06 | Anesthesiology Progress Note ---
Anesthesia Post Op Note Date & Time Sep 03, 2017 at 10:06 Vital Signs Vital Signs Past 12 Hours Date Time Temp Pulse Resp B/P (MAP) Pulse Ox O2 Delivery O2 Flow Rate FiO2 09/03/17 08:00 Room Air 09/03/17 07:03 36.8 64 18 106/66 (79) 96 Room Air 09/03/17 04:01 36.9 68 16 98/59 (72) 93 Room Air 09/02/17 23:38 Room Air 09/02/17 22:50 37.0 92 16 109/65 (80) 96 Room Air Notes Mental Status: alert / awake / arousable, participated in evaluation Pt Amnestic to Procedure: Yes Nausea / Vomiting: adequately controlled Pain: adequately controlled Airway Patency, RR, SpO2: stable & adequate BP & HR: stable & adequate Hydration State: stable & adequate Anesthetic Complications: no major complications apparent
[2017-09-03] MEDS: HYDROmorphone INJ 0.5 MG/0.5 ML SYR IV PRN (12:34)
[2017-09-03] MEDS: ONDANSETRON INJ 2 MG/ML 2 ML VIAL IV PRN (12:58)
[2017-09-03 15:04] VITALS: BP 124/68; PULSE 67; TEMP 36.5; O2SAT 95
[2017-09-03] MEDS ORDERED: ULT50X PO (20:14)
[2017-09-03] MEDS ORDERED: ACET-24 PO (20:14)
[2017-09-03] MEDS ORDERED: ASPEC325 PO (20:14)
[2017-09-03] MEDS ORDERED: FRRG PO (20:14)
--- NOTE | 2017-09-03 20:17 | Discharge Instructions ---
Discharge Instructions Date of Service Sep 03, 2017. Admission Reason for Admission: Left Knee Degenerative Joint Disease Discharge Discharge Diagnosis / Problem: Left Knee Replacement Discharge Goals Goal(s): Decrease discomfort, Improve function, Increase independence, Improve disease control, Therapeutic intervention Activity Recommendations Activity Level: Assistance Required Therapies: Physical Therapy, Occupational Therapy Weightbearing Status: Left weightbearing . Additional Information Patient informed of condition: Yes Advance Directives: Yes DNR: No Level of Care: Acute Rehab Communicable Disease: No Prognosis: Improving Instructions / Follow-Up Instructions / Follow-Up ACTIVITY RECOMMENDATIONS: Physical Therapy: * You will go to physical therapy three times each week for four to six weeks after your surgery in order to regain your knee range of motion and to retrain your knee to work properly. * It is just as important to make sure you are getting your knee perfectly straight as it is to regain your knee bend. * Taking a pain pill an hour before therapy can help you have a more productive and comfortable therapy session. Home Exercise: * You were shown a series of exercises (heel props, heel slides, etc.) in the hospital. Do these exercises three to four times each day including the exercises you were shown in physical therapy. Walking: * Get up and walk several times each day. For the first four weeks, try not to stand or walk for more than one hour at a time. If you do stand or walk for more than one hour, you will not hurt anything, but your knee and leg will likely swell. * As you feel comfortable, you may change from the walker or crutches to a cane and then to independent walking. MEDICATIONS: New Medicine: * You will likely be taking one or more of these medications: 1. Tramadol - A quick and shorter-acting pain medication. Take one to two tablets every four to six hours to lessen your pain. 2. Iron Sulfate - Take two times each day for the month after surgery to help you replace the blood lost during surgery. 3. Aspirin - Thins your blood to lessen the chance of forming a blood clot. * The most common side effects of pain medicine and iron are nausea and constipation. If nausea or constipation is too much of a problem or if you have any questions about your new medicines or doses, call [facility] at . We will try to help you manage these issues. VERY IMPORTANT TO READ AND REVIEW" Pain: * The immediate post-operative period after knee replacement surgery is often quite painful. * You are given a prescription for pain medicine. You should take it, as directed, when you need it, especially before physical therapy and before going to bed. Pain that interferes with sleep is very common and can last several months. * You will likely need pain medicine for the first four to six weeks. It will not stop all of the pain. The pain will lessen and as you feel better, you may change to milder pain medicine such as Tylenol. * The most common side effects of pain medicine are nausea and constipation, so don't take more than you need. SPECIAL CARE INSTRUCTIONS: TEDs/Elastic Stockings: * The white elastic stockings help limit swelling and prevent blood clots from forming in your legs. The more you wear them, the more they work. * Wear them for six weeks after knee replacement surgery and four weeks after partial knee replacement. Prevention of Infection: * Take antibiotics one hour before any dental cleaning, dental work, urological procedure, gastrointestinal procedure or any invasive surgery in order to prevent your new joint from getting infected. * You may get the antibiotics from the doctor performing the procedure or you may call our office at before and we will call in a prescription to the pharmacy of your choice. Things to Watch For: * Drainage from the incision site that occurs more than one week after your surgery. * Severely increased knee/leg pain or swelling. * Increased redness at the incision site. * Fever above 102 degrees Fahrenheit. * Unusual chest pain or shortness of breath. * Unusual pain or burning with urination. Call [facility] at with any of the above problems or if you have any questions about your medicines or recovery. FOLLOW UP VISIT: Make an appointment to see your doctor for approximately two weeks after surgery for a progress check and staple removal by calling the office at . Current Hospital Diet Patient's current hospital diet: Regular Diet Discharge Diet Recommended Diet: Regular Diet Procedures Procedures Performed: Left total knee arthroplasty Pending Studies Studies pending at discharge: no Medical Emergencies . Who to Call and When: Medical Emergencies: If at any time you feel your situation is an emergency, please call [phone] immediately. . Non-Emergent Contact Non-Emergency issues call your: Surgeon . . "Provider Documentation" section prepared by Reno Bustillos. . Core Measure Problem Core Measures: None
[2017-09-03] MEDS: MULTIVITAMIN TAB PO SCH (21:59)
[2017-09-03 22:04] VITALS: BP 117/65; PULSE 74
[2017-09-03 23:34] VITALS: BP 122/72; PULSE 71; TEMP 37.1; O2SAT 93
[2017-09-04] MEDS: KETOROLAC TROMETHAMINE 15 MG/ML VIAL IV. SCH ×2 (02:06→09:33)
[2017-09-04] MEDS: ACETAMINOPHEN 500 MG TAB PO SCH (06:06)
[2017-09-04 07:11] VITALS: BP 137/77; PULSE 69; TEMP 36.7; O2SAT 93
[2017-09-04] MEDS: FERROUS GLUCONATE 324 MG TAB PO SCH (08:30)
[2017-09-04] MEDS: ONDANSETRON INJ 2 MG/ML 2 ML VIAL IV PRN (08:47)
[2017-09-04] MEDS: CYANOCOBALAMIN 500 MCG TAB (VIT B-12) PO SCH (09:33)
[2017-09-04] MEDS: DOCUSATE SODIUM 100 MG CAP PO SCH (09:33)
[2017-09-04] MEDS: ASPIRIN 325 MG ECTAB PO SCH (09:34)
[2017-09-04] MEDS: TRIAMTERENE/HCTZ 37.5/25MG TAB PO SCH (09:34)
[2017-09-04] MEDS: CHOLECALCIFEROL 1000 INTER.UNIT TAB PO SCH (09:34)
[2017-09-04] MEDS: PANTOprazole SOD 40 MG TAB PO SCH (09:35)
[2017-09-04] MEDS: RANITIDINE HCL 150 MG TAB PO SCH (09:35)
[2017-09-04] MEDS: POLYETHYLENE (MIRALAX) 17 GM PACK PO SCH (09:35)
[2017-09-04] MEDS: METOPROLOL TARTRATE 25 MG TAB PO SCH (09:35)
[2017-09-04] MEDS ORDERED: ONDA4TAB65 PO (11:15)
--- NOTE | 2017-09-04 11:28 | Discharge Instructions ---
Discharge Instructions Date of Service Sep 04, 2017. Admission Reason for Admission: Left Knee Degenerative Joint Disease Discharge Discharge Diagnosis / Problem: Left Knee Replacement Discharge Goals Goal(s): Decrease discomfort, Improve function, Increase independence, Improve disease control, Therapeutic intervention Activity Recommendations Activity Limitations: per Instructions/Follow-up section Weightbearing Status: Left weightbearing . Instructions / Follow-Up Instructions / Follow-Up ACTIVITY RECOMMENDATIONS: Physical Therapy: * You will go to physical therapy three times each week for four to six weeks after your surgery in order to regain your knee range of motion and to retrain your knee to work properly. * It is just as important to make sure you are getting your knee perfectly straight as it is to regain your knee bend. * Taking a pain pill an hour before therapy can help you have a more productive and comfortable therapy session. Home Exercise: * You were shown a series of exercises (heel props, heel slides, etc.) in the hospital. Do these exercises three to four times each day including the exercises you were shown in physical therapy. Walking: * Get up and walk several times each day. For the first four weeks, try not to stand or walk for more than one hour at a time. If you do stand or walk for more than one hour, you will not hurt anything, but your knee and leg will likely swell. * As you feel comfortable, you may change from the walker or crutches to a cane and then to independent walking. MEDICATIONS: New Medicine: * You will likely be taking one or more of these medications: 1. Tramadol - A quick and shorter-acting pain medication. Take one to two tablets every four to six hours to lessen your pain. 2. Iron Sulfate - Take two times each day for the month after surgery to help you replace the blood lost during surgery. 3. Aspirin - Thins your blood to lessen the chance of forming a blood clot. * The most common side effects of pain medicine and iron are nausea and constipation. If nausea or constipation is too much of a problem or if you have any questions about your new medicines or doses, call [facility] at . We will try to help you manage these issues. VERY IMPORTANT TO READ AND REVIEW" Pain: * The immediate post-operative period after knee replacement surgery is often quite painful. * You are given a prescription for pain medicine. You should take it, as directed, when you need it, especially before physical therapy and before going to bed. Pain that interferes with sleep is very common and can last several months. * You will likely need pain medicine for the first four to six weeks. It will not stop all of the pain. The pain will lessen and as you feel better, you may change to milder pain medicine such as Tylenol. * The most common side effects of pain medicine are nausea and constipation, so don't take more than you need. SPECIAL CARE INSTRUCTIONS: TEDs/Elastic Stockings: * The white elastic stockings help limit swelling and prevent blood clots from forming in your legs. The more you wear them, the more they work. * Wear them for six weeks after knee replacement surgery and four weeks after partial knee replacement. Prevention of Infection: * Take antibiotics one hour before any dental cleaning, dental work, urological procedure, gastrointestinal procedure or any invasive surgery in order to prevent your new joint from getting infected. * You may get the antibiotics from the doctor performing the procedure or you may call our office at before and we will call in a prescription to the pharmacy of your choice. Things to Watch For: * Drainage from the incision site that occurs more than one week after your surgery. * Severely increased knee/leg pain or swelling. * Increased redness at the incision site. * Fever above 102 degrees Fahrenheit. * Unusual chest pain or shortness of breath. * Unusual pain or burning with urination. Call [facility] at with any of the above problems or if you have any questions about your medicines or recovery. FOLLOW UP VISIT: Make an appointment to see your doctor for approximately two weeks after surgery for a progress check and staple removal by calling the office at . Current Hospital Diet Patient's current hospital diet: Regular Diet Discharge Diet Recommended Diet: Regular Diet Procedures Procedures Performed: Left total knee arthroplasty Pending Studies Studies pending at discharge: no Medical Emergencies . Who to Call and When: Medical Emergencies: If at any time you feel your situation is an emergency, please call [phone] immediately. . Non-Emergent Contact Non-Emergency issues call your: Surgeon . "Provider Documentation" section prepared by Reno Bustillos. . VTE Core Measure Inpt VTE Proph given/why not?: Other Anticoagulation, T.E.D. Stockings, SCD's
[2017-09-04 11:44] VITALS: BP 137/77; PULSE 69; TEMP 36.7; O2SAT 93
--- NOTE | 2017-09-04 11:47 | PROGRESS NOTE ---
DATE: 09/04/2017 SUBJECTIVE: A 77-year-old white female postop day 2 from a left knee replacement. She is doing well. Pain is controlled. No chest pain or shortness of breath. She has not had a bowel movement, but passing gas. No abdominal discomfort. OBJECTIVE: VITAL SIGNS: Temperature 36.7. Vital signs stable. PHYSICAL EXAMINATION: GENERAL: Reveals a pleasant elderly female. She is lying in bed and looks pretty comfortable. She is awake, alert and oriented. EXTREMITIES: Examination of the left leg reveals the incision to be clean, dry and intact. Calf is soft and supple. She can dorsiflex and plantarflex her foot appropriately. She is neurologically intact. ASSESSMENT: A 77-year-old white female postop day 2 from a left knee replacement, doing pretty well. Pain is controlled. She is neurologically intact. PLAN: 1. DVT prophylaxis including thigh-high TEDs, SCDs, and aspirin twice a day. 2. PT/OT. Weight bear as tolerated. Left total knee protocol. 3. Pain control, doing well with current pain regimen. We are going to stick to Tylenol and just use tramadol as needed. 4. Disposition: She was initially planning to go to [facility], but decided she wants to go to home with home health due to issues with concerns about catching the flu at [facility]. We will set her up for home health. Her daughter is going to come and stay with her. AVA
== END 2017-09-04 12:56 | disposition home health service (06) | DRG 470 ==
LOC: C.ACU 07:15 → C.MSW 08:50 → ENRESERV 12:16
PROVIDERS: ADMIT Orthopaedic Surgery Sports Medicine; ATTEND Orthopaedic Surgery Sports Medicine
PROC: 0SRD0J9 Replacement of Left Knee Joint with Synthetic Substitute, Cemented, Open Approach (ICD-10-PCS; principal; 2017-09-02 09:30)
DX: M17.12 Unilateral primary osteoarthritis, left knee (principal); K59.9 Functional intestinal disorder, unspecified; I10 Essential (primary) hypertension; E66.01 Morbid (severe) obesity due to excess calories; Z79.899 Other long term (current) drug therapy; Z96.651 Presence of right artificial knee joint; Z68.32 Body mass index [BMI] 32.0-32.9, adult; Z85.038 Personal history of other malignant neoplasm of large intestine

== ENCOUNTER 2024-02-12 07:18 | Observation (INO) ==
--- NOTE | 2024-01-01 15:25 | PAT Medication Instructions ---
Medication Instructions Date of Service January 01, 2024 Home Medications Medication Instructions Recorded metoprolol tartrate 25 mg tablet 12.5 mg (1/2 x 25 mg) PO BID #35 07/25/19 tabs Medication List: acetaminophen 500 mg tablet (Tylenol Extra Strength) 1,000 mg PO QID PRN Pain docusate sodium 100 mg capsule (Colace) 100 mg PO QPM magnesium oxide 400 mg PO QPM multivitamin 1 tab PO DAILY cyanocobalamin (vitamin B-12) 1,000 mcg tablet 1,000 mcg PO QAM aspirin 81 mg tablet,delayed release (Aspir-) 81 mg PO QAM ascorbic acid (vitamin C) 1,000 mg tablet 1 gm PO QAM metoprolol tartrate 25 mg tablet 12.5 mg (1/2 x 25 mg) PO BID Lactobacillus acidophilus 10 billion cell capsule (Probiotic) 10,000 mmu cells PO DAILY amitriptyline 25 mg tablet 25 mg PO HS coenzyme Q10 100 mg capsule (CoQ-10) 100 mg PO DAILY diltiazem HCl 120 mg capsule,extended release 24 hr 120 mg PO QAM rosuvastatin 10 mg tablet 10 mg PO QAM tolterodine 2 mg tablet (Detrol) 2 mg PO BID PRN bladder control triamterene 75 mg-hydrochlorothiazide 50 mg tablet (Maxzide) 1 tab PO QAM MEDICATION INSTRUCTIONS: ASK your prescriber and surgeon aspirin 81 mg tablet,delayed release (Aspir-) 81 mg PO QAM STOP taking 2 weeks before surgery coenzyme Q10 100 mg capsule (CoQ-10) 100 mg PO DAILY DO NOT take the morning of surgery tolterodine 2 mg tablet (Detrol) 2 mg PO BID PRN bladder control Lactobacillus acidophilus 10 billion cell capsule (Probiotic) 10,000 mmu cells PO DAILY triamterene 75 mg-hydrochlorothiazide 50 mg tablet (Maxzide) 1 tab PO QAM multivitamin 1 tab PO DAILY cyanocobalamin (vitamin B-12) 1,000 mcg tablet 1,000 mcg PO QAM ascorbic acid (vitamin C) 1,000 mg tablet 1 gm PO QAM Take morning of surgery With a small sip of water, OTHERWISE NOTHING TO EAT OR DRINK AFTER MIDNIGHT: acetaminophen 500 mg tablet (Tylenol Extra Strength) 1,000 mg PO QID PRN Pain metoprolol tartrate 25 mg tablet 12.5 mg (1/2 x 25 mg) PO BID diltiazem HCl 120 mg capsule,extended release 24 hr 120 mg PO QAM rosuvastatin 10 mg tablet 10 mg PO QAM Take evening before surgery acetaminophen 500 mg tablet (Tylenol Extra Strength) 1,000 mg PO QID PRN Pain amitriptyline 25 mg tablet 25 mg PO HS docusate sodium 100 mg capsule (Colace) 100 mg PO QPM magnesium oxide 400 mg PO QPM tolterodine 2 mg tablet (Detrol) 2 mg PO BID PRN bladder control metoprolol tartrate 25 mg tablet 12.5 mg (1/2 x 25 mg) PO BID Other Notes If you have any questions please call us at [phone] or [phone] or [phone] or [phone]
--- NOTE | 2024-01-19 11:22 | Anesthesiology Consultation ---
Date of Service January 19, 2024 Assessment & Plan (1) Encounter for pre-operative examination: Plan - upcoming [place] cardiology appointment with Dr. Barnes 02/03/[address] [facility]. - she reports intermittent episodes over the past year where she was being active and then developed visual changes, tachycardia and significant generalized weakness requiring her to rest for several hours until resolution. She denies seeking evaluation, states her [facility] PCP is aware. Case discussed in detail with Dr. Yanez who advised patient does need cardiology pre-operative evaluation. I contacted patient and relayed information on cardiology pre- operative evaluation, she verbalized understanding and agreement-confirmed she would like to have appointment with [place] cardiology in [facility] with physician only. Jocelyn with [place] office was contacted and confirmed above information and that she will call patient to confirm appointment. Surgeon's office made aware procedure is pending cardiology clearance. - Outpatient joint assessment: Patient is currently scheduled for inpatient pathway. If re-evaluated and patient/surgeon requests outpatient pathway, patient is not candidate for outpatient joint program from anesthesia standpoint. - Total time in direct patient care 65 minutes. I listened to her concerns regarding previous healthcare experiences and voiced empathy/support. 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 I offered she see an anesthesiologist for today's visit which she declined stating she felt comfortable with our visit. At the end of the visit I offered this again and she re-iterated comfort with our visit today and that she did not want an anesthesiologist to speak with her-stated her questions/concerns were well addressed to her satisfaction. I offered contact information for patient accounts/billing as she also indicated desire to further discuss financial options and she expressed interest-these were provided. She expressed appreciation for our conversations and the time spent assisting in her care. Chart Review Chart Review: Pending: Refer to Additional Notes / Consult section and Patient seen in Pre Admission Testing Teaching & Discussion Pre-Anesthesia Teaching/Discussion Notes: Instructed NPO after midnight before surgery, except medications with 15 cc of water. Medication instructions provided according to the PAT guidelines. History Surgery Operation Date: 02/12/24 10:05 Proposed Procedures p Right Total Shoulder Arthroplasty Reverse - Nayan Santiago DO Height/Weight Height: 4 ft 11 in Weight: 68.1 kg Allergies Allergy/AdvReac Type Severity Reaction Status Date / Time morphine Allergy Mild RASH & Verified 01/01/24 11:05 HALLUCINATIONS,VOMITING oxycodone AdvReac Severe VOMITING,DI Verified 01/01/24 11:05 ARRHEA Llizxbl-WFP-OoT Reductase AdvReac Mild MUSCLE Verified 01/01/24 11:05 Inhibitor ACHES [Ijljtmk-Guh-Usg Reductase Inhibitor] wheat AdvReac Mild DIARRHEA-AVOIDS Verified 01/01/24 11:05 WHEAT Medications Home Medications Medication Instructions Recorded Confirmed Last Taken acetaminophen 500 mg tablet 1,000 mg PO QID PRN Pain 01/10/19 01/01/24 02/15/19 07:30 (Tylenol Extra Strength) docusate sodium 100 mg capsule 100 mg PO QPM 01/10/19 01/01/24 02/15/19 (Colace) magnesium oxide 400 mg PO QPM 01/10/19 01/01/24 02/14/19 multivitamin 1 tab PO DAILY 01/10/19 01/01/24 02/15/19 cyanocobalamin (vitamin B-12) 1,000 mcg PO QAM 02/06/19 01/01/24 02/15/19 1,000 mcg tablet aspirin 81 mg tablet,delayed 81 mg PO QAM 03/31/19 01/01/24 Unknown release (Aspir-) ascorbic acid (vitamin C) 1,000 mg 1 gm PO QAM 04/25/19 01/01/24 Unknown tablet metoprolol tartrate 25 mg tablet 12.5 mg (1/2 x 25 mg) PO BID #35 07/25/19 01/01/24 Unknown tabs Lactobacillus acidophilus 10 10,000 mmu cells PO DAILY 01/01/24 01/01/24 Unknown billion cell capsule (Probiotic) amitriptyline 25 mg tablet 25 mg PO HS 01/01/24 01/01/24 Unknown coenzyme Q10 100 mg capsule 100 mg PO DAILY 01/01/24 01/01/24 Unknown (CoQ-10) diltiazem HCl 120 mg 120 mg PO QAM 01/01/24 01/01/24 Unknown capsule,extended release 24 hr rosuvastatin 10 mg tablet 10 mg PO QAM 01/01/24 01/01/24 Unknown tolterodine 2 mg tablet (Detrol) 2 mg PO BID PRN bladder control 01/01/24 01/01/24 Unknown triamterene 75 1 tab PO QAM 01/01/24 01/01/24 Unknown mg-hydrochlorothiazide 50 mg tablet (Maxzide) Past Medical History Medical History Acid reflux disease controlled, stable per pt Bowel incontinence chronic since colon resection/constipation-denies change or worsening Carotid artery stenosis < 50% stenosis ICAs bilat on 2021 duplex History of anesthesia reaction reports waking up during knee surgery History of angina "sometimes it acts up" patient describes chest discomfort-states has not had chest discomfort for 2 years History of claustrophobia History of colon cancer (2003) bowel resection / no chemo or XRT History of depression History of Lyme disease persistent PSVT x 2 Hx of constipation Hypercholesteremia Hypertension controlled, stable per pt IBS (irritable bowel syndrome) Polymyalgia rheumatica PSVT (paroxysmal supraventricular tachycardia) last visit with [facility] cardiology 08/2022-lost to f/u per [facility] EMR Rotator cuff tear, right Patient denies h/o stroke, seizures, heart attack, heart failure, DM, blood clots/DVTs or blood transfusions. Exercise / Class Metabolic Activity III < 4 Walking/Shop/Light housework (occasional shortness of breath with increased activity such has gardening or carrying laundry-denies shortness of breath with usual activities; denies chest discomfort with activity) Past Family History Family History Mother Colorectal cancer Sister Colorectal cancer Osteoarthritis Myocardial infarction Aunt Breast cancer Other No pertinent family history Denies family history of Ovarian cancer Prostate cancer Past Surgical History Surgical History H/O: hysterectomy History of bilateral knee replacement History of bladder surgery tac History of colon resection (2003) , 18 inches removed, for Colon Cancer History of colonoscopy History of dilatation and curettage x3 due to miscarriages Hx of bilateral cataract extraction Hx of LASIK bilateral Hx of removal of cyst breast, benign Past Anesthesia History No Family Hx of Anesthesia Complications and Other (awareness during knee surgery) History of PONV No Hx of PONV and No Hx of Motion Sickness Social History Smoking Status: Never smoker Do You Dip or Chew Tobacco: No Hx Alcohol Use: No Hx Substance Use: No substance use type: does not use Review of Systems Patient denies chest pain, snoring, witnessed apneas, fever, chills, cough, wheezing, or palpitations. Physical Exam Vital Signs Vitals BP 137/78 P 63 TEMP 98.3 SP02 95% on RA RESP 18 Physical Patient resting comfortably in chair in no acute distress, alert and oriented, responding appropriately throughout visit Full cervical extension range of motion without pain TMD 3.5 finger breadths Mallampati Score 3 Dentition: full upper dentures and multiple missing lower teeth, denies chipped or loose teeth, caps/crowns, implants or bridges Lungs: normal respiratory effort. Good air movement, clear throughout to auscultation, no adventitious breath sounds Cardiac: regular rate and rhythm, no murmurs noted Carotid arteries: negative bruit bilat Lab Results Anesthesia Preop Results Results Anesthesia Widget: WBC 6.19 K/ul (4.8-10.8) 01/19/24 Hgb 13.9 g/dl (12.0-16.0) 01/19/24 Hct 41.1 % (37.0-47.0) 01/19/24 Plt 286 K/uL (130-400) 01/19/24 Na 131 mmol/L (136-145) L 01/19/24 K 3.6 mmol/L (3.5-5.1) 01/19/24 Cl 96 mmol/L (98-107) L 01/19/24 CO2 28 mmol/L (21-32) 01/19/24 BUN 15 mg/dl (6-23) 01/19/24 Creat 0.74 mg/dl (0.6-1.2) 01/19/24 Glucose Level 120 mg/dl (70-99(Fasting)) H 01/19/24 PT 10.7 Seconds (9.0-12.0) 01/19/24 PTT 27 Seconds (21-31) 01/19/24 INR 1.0 (0.9-1.1) 01/19/24 Blood Type O Positive 01/19/24 Antibody Screen NEGATIVE 01/19/24 Testing Electrocardiogram Date: 05/20/24 NSR, rate 61 bpm Chest X-Ray Date: 01/19/24 No acute chest disease. Cardiomegaly is noted. Echocardiogram Date: 03/08/20 EF 64% Mild cLVH No LV regional wall motion abnormality Grade I diastolic dysfunction No significant valvular pathology PASP 36 mmHg Cervical Spine Date: 07/22/23 No visible fracture. Minimal anterolisthesis C6 on C7 on the neutral view which is not significantly changed on flexion and extension. Minimal anterolisthesis C3 on C4, C4 on C5 and C5 on C6 with flexion only. Multilevel degenerative disc disease, most pronounced at C5-C6 with disc space narrowing, subchondral sclerosis and marginal osteophyte formation. Multilevel facet and uncovertebral joint arthropathy also noted. No significant soft tissue abnormality. IMPRESSION Chronic changes as above. Other Testing Carotid duplex 05/13/22 Right carotid artery duplex examination indicates evidence of less than 50% stenosis of the internal carotid artery. Left carotid artery duplex examination indicates evidence of less than 50% stenosis of the internal carotid artery
--- NOTE | 2024-02-10 12:36 | History & Physical Report ---
Date of Service February 10, 2024 Assessment & Plan (1) Rotator cuff tear arthropathy of right shoulder: We will proceed with a right reverse shoulder arthroplasty. Postoperatively she will be placed in a sling and kept overnight in the hospital for postop medical management. She plans to have [facility] upon discharge. History of Present Illness Chief Complaint: Cuff arthropathy of right shoulder. Primary Care Provider: Stephani Tobias DO Alisia is a pleasant 83-year-old female who has been dealing with chronic worsening right shoulder pain. X-rays do not look too bad. I diagnosed her clinically with a large rotator cuff tear. She is having trouble sleeping at night. She is having trouble doing any activities away from her body or up ov erhead. 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 After failing conservative treatment, she has elected proceed with a right reverse shoulder arthroplasty. Allergies Allergy/AdvReac Type Severity Reaction Status Date / Time morphine Allergy Mild RASH & Verified 02/03/24 14:46 HALLUCINATIONS,VOMITING oxycodone AdvReac Severe VOMITING,DI Verified 02/03/24 14:46 ARRHEA Dxfgcat-GFJ-NcK Reductase AdvReac Mild MUSCLE Verified 02/03/24 14:46 Inhibitor ACHES [Tsxldww-Dsl-Ccz Reductase Inhibitor] wheat AdvReac Mild DIARRHEA-AVOIDS Verified 02/03/24 14:46 WHEAT Home Medications Medication Instructions Recorded Confirmed Type acetaminophen 500 mg tablet 1,000 mg PO QID PRN Pain 01/10/19 02/03/24 History (Tylenol Extra Strength) docusate sodium 100 mg capsule 100 mg PO QPM 01/10/19 02/03/24 History (Colace) magnesium oxide 400 mg PO QPM 01/10/19 02/03/24 History multivitamin 1 tab PO DAILY 01/10/19 02/03/24 History cyanocobalamin (vitamin B-12) 1,000 mcg PO QAM 02/06/19 02/03/24 History 1,000 mcg tablet aspirin 81 mg tablet,delayed 81 mg PO QAM 03/31/19 02/03/24 History release (Aspir-) ascorbic acid (vitamin C) 1,000 mg 1 gm PO QAM 04/25/19 02/03/24 History tablet metoprolol tartrate 25 mg tablet 12.5 mg (1/2 x 25 mg) PO BID #35 12/23/19 07/03/24 Rx tabs Lactobacillus acidophilus 10 10,000 mmu cells PO DAILY 01/01/24 02/03/24 History billion cell capsule (Probiotic) amitriptyline 25 mg tablet 25 mg PO HS 01/01/24 02/03/24 History coenzyme Q10 100 mg capsule 100 mg PO DAILY 01/01/24 02/03/24 History (CoQ-10) diltiazem HCl 120 mg 120 mg PO QAM 01/01/24 02/03/24 History capsule,extended release 24 hr rosuvastatin 10 mg tablet 10 mg PO QAM 01/01/24 02/03/24 History tolterodine 2 mg tablet (Detrol) 2 mg PO BID PRN bladder control 01/01/24 02/03/24 History triamterene 75 1 tab PO QAM 01/01/24 02/03/24 History mg-hydrochlorothiazide 50 mg tablet (Maxzide) cefadroxil 500 mg capsule 500 mg PO BID 10 days #20 caps 02/10/24 Rx tramadol 50 mg tablet 50 mg PO Q8H PRN pain #30 tabs 02/10/24 Rx Past Med/Surg History Problem List (Updated 02/10/24 @ 12:35 by Nayan Santiago DO) Rotator cuff tear arthropathy of right shoulder Encounter for pre-operative examination Acromioclavicular joint arthritis Atrophy of muscle of right shoulder Rotator cuff tear, right Acid reflux disease (Chronic) Constipation Anxiety Insomnia Depression Hypercholesterolemia Hypertension Medical History Bowel incontinence chronic since colon resection/constipation-denies change or worsening History of claustrophobia History of Lyme disease persistent PSVT x 2 Carotid artery stenosis < 50% stenosis ICAs bilat on 2021 duplex PSVT (paroxysmal supraventricular tachycardia) last visit with [facility] cardiology 08/2022-lost to f/u per [facility] EMR Polymyalgia rheumatica History of anesthesia reaction reports waking up during knee surgery Hx of constipation Hypercholesteremia History of angina "sometimes it acts up" patient describes chest discomfort-states has not had chest discomfort for 2 years Rotator cuff tear, right History of depression Hypertension controlled, stable per pt Acid reflux disease controlled, stable per pt History of colon cancer (2003) bowel resection / no chemo or XRT IBS (irritable bowel syndrome) Surgical History History of bilateral knee replacement History of colonoscopy Hx of removal of cyst breast, benign Hx of LASIK bilateral Hx of bilateral cataract extraction History of colon resection (2003) [facility], 18 inches removed, for Colon Cancer History of dilatation and curettage x3 due to miscarriages History of bladder surgery tac H/O: hysterectomy Family History Mother Colorectal cancer Sister Colorectal cancer Osteoarthritis Myocardial infarction Aunt Breast cancer Other No pertinent family history Denies family history of Ovarian cancer Prostate cancer Social History Smoking Status: Never smoker Second Hand Exposure: No; Do You Dip or Chew Tobacco: No; Hx Alcohol Use: No Hx Substance Use: No Preferred Language: Hungarian Communication Ability: Effective Visual Impairment: No Limitations Hearing Ability: Normal 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 Physical Exam On physical examination of the right shoulder, she has decreased range of mo tion. She has 3 out of 5 motor strength with full can test and external rotation.. Constitutional WD/WN, vitals as above Eyes PERRL, conjunctivae normal, anicteric sclerae ENMT external ear and nose normal, oropharynx normal Neck trachea midline, no thyromegaly Respiratory normal respiratory effort Cardiovascular RRR, no murmur, no edema Gastrointestinal (Abdomen) normal bowel sounds, soft, nontender, no hepatosplenomegaly Psychiatric A+Ox3, euthymic affect Results & Data Results & Data Laboratory Results . Diagnostic Findings X-rays and MRI of the right shoulder are consistent with cuff tear arthropathy.. PG Care Time/CCT Total # of Minutes Spent Total Time Spent with Patient: Total time spent is greater than 50% in coordination of care (as documented) at patient's floor/unit and/or counseling patient: Coding Level of Care Code None Diagnoses Rotator cuff tear arthropathy of right shoulder M75.101; M12.811
[~2024-02-12 07:18] MED LIST changes: -ACET-1256 PO; -ACETAMINOPHEN 500 MG TAB PO SCH; -ASPI81TA28 PO; -ATROPINE SULFATE 0.1 MG/ML 5ML SYR IV PRN; +BUPIVACAINE 0.5 % 5 MG/1 ML PF 10ML VIAL ONE; -BUPIVACAINE LIPOSOME 266 MG, BUPIVACAINE/EPINEPHRINE INJ 50 ML, SODIUM CHLORIDE 0.9% PF... INFIL SCH; -CEFAZOLIN 2000MG IV PUSH 10 ML IV SCH; -CHOL2000 PO; -CYAN10005 PO; -DICL1GEL12 TOP; -DOCU100C31 PO; -EpHEDrine SULFATE INJ 50 MG/ML AMP IV PRN; -FAMOTIDINE 20 MG TAB PO SCH; -FENTANYL CITRATE INJ 50 MCG/1 ML 2 ML VIAL IV PRN; -GABAPENTIN 300 MG CAP PO SCH; -HYDROmorphone INJ 1 MG/ML SYR IV PRN; -LABETALOL HCL IV 5 MG/ML 20ML IV PRN; -LACTATED RINGER'S 1000ML 1,000 ML IV SCH; -LACTATED RINGER'S 1000ML 500 ML IV SCH; -LACTATED RINGER'S 1000ML IV SCH; -LINA72CA PO; -MAGNESIUM PO; -METO25TA56 PO; -METOCLOPRAMIDE HCL 10 MG TAB PO SCH; -MULT-506 PO; -ONDANSETRON INJ 2 MG/ML 2 ML VIAL IV PRN; -PERP2TAB6 PO; -PHENYLEPHRINE 100MCG/ML 5ML SYR IV PRN; -POLY335019 PO; -POLYSOL OPB; -TRANEXAMIC ACID INJ 1,000 MG in SYRINGE 0 ML IV SCH; -TRIA75TA53 PO; -VITAMIN C PO; -ZNTT/150 PO
[2024-02-12] MEDS ORDERED: fentaNYL citrate PF 100 MCG/2 ML VIAL ONE (07:51)
[2024-02-12] MEDS ORDERED: MIDAZOLAM HCL 1 MG/ML 2ML VIAL ONE (07:51)
[2024-02-12] MEDS: LR 15ML/HR IV SCH (08:03)
[2024-02-12] MEDS: LR 60ML/HR IV SCH (08:11)
--- NOTE | 2024-02-12 08:17 | History & Physical Bridge Note ---
Date of Service February 12, 2024 History & Physical Bridge Note I have examined the patient, reviewed the History & Physical and in the interval since the performance of the History & Physical I have noted the following changes of clinical significance: no changes noted
[2024-02-12] MEDS: FAMOTIDINE 20 MG TAB PO SCH (08:27)
[2024-02-12] MEDS: dexAMETHasone**PF** 10 MG/ML VIAL IV SCH (08:28)
[2024-02-12] MEDS: GABAPENTIN 300 MG CAP PO SCH (08:28)
[2024-02-12] MEDS: ACETAMINOPHEN 500 MG TAB PO SCH ×2 (08:37→15:20)
[2024-02-12] MEDS ORDERED: fentaNYL citrate PF 100 MCG/2 ML VIAL IV PRN (08:51)
[2024-02-12] MEDS ORDERED: ePHEDrine sulfate 50 MG/ML AMP IV PRN (08:51)
[2024-02-12] MEDS ORDERED: ONDANSETRON INJ 2 MG/ML 2 ML VIAL IV PRN ×2 (08:51→14:23)
[2024-02-12] MEDS ORDERED: ATROPINE SULFATE 0.1 MG/ML 10ML SYR IV PRN (08:51)
[2024-02-12] MEDS: TRANEXAMIC ACID 1,000 MG **IV Pre-op IV SCH (08:53)
[2024-02-12] MEDS: ceFAZolin 2000MG 2,000 MG/15 ML SYR IV SCH ×2 (09:11→17:27)
[2024-02-12] MEDS ORDERED: GLYCOPYRROLATE 0.2 MG/ML VIAL ONE ×2 (09:45→10:08)
[2024-02-12] MEDS ORDERED: ePHEDrine sulfate 50 MG/5 ML SYR ONE (09:45)
[2024-02-12] MEDS ORDERED: ONDANSETRON INJ 2 MG/ML 2 ML VIAL ONE (09:45)
[2024-02-12] MEDS ORDERED: PHENYLEPHRINE HCL 10 MG/ML VIAL ONE (09:45)
[2024-02-12] MEDS ORDERED: PROPOFOL IV EMULSION 10 MG/ML 20 ML VIAL IV ONE (09:45)
[2024-02-12] MEDS: ROPIV 0.5% 246mg, Ketorolac 30mg, EPINEPHrine 0.5mg in NSS INFIL SCH (09:55)
[2024-02-12] MEDS: ORTHO JOINT ANESTHETIC ONE (10:02)
[2024-02-12] MEDS: TRANEXAMIC ACID 1,000 MG **IV Intra-op IV SCH (10:06)
[2024-02-12] MEDS ORDERED: NEOSTIGMINE METHYLSULFATE 1 MG/ML 10ML VIAL ONE (10:08)
--- NOTE | 2024-02-12 10:08 | Operative Report ---
PG Post Operative Report Pre & Post Diagnosis Operation Date: 02/12/24 09:00 Pre-Op Diagnosis: Rotator cuff tear arthropathy of right shoulder with tendinopathy long head of the biceps tendon Post-Op Diagnosis: Rotator cuff tear arthropathy of right shoulder with tendinopathy long head of the biceps tendon I identified the patient and participated in the time-out.: Yes Procedure Operation Date: 02/12/24 09:00 Actual Procedures p Right Reverse Total Shoulder Arthroplasty(Right) with open biceps tenodesis as a distinct and separate procedure (modifier 59)- Nayan Santiago DO Surgeon Nayan Santiago DO Retail Associate Manager Bilingual Nayan Clancy PA-C Estimated Blood Loss 50 Findings Consistent with Post-Op Diagnosis Specimens Right femoral head Description of Procedure A CPT code modifier 59: The long head of the biceps tendon was enlarged and inflamed consistent with tendinopathy. A tenodesis was opted. This was a separate and distinct portion of the procedure. For these reasons, a CPT code modifier 59 will be added to this case. Implants used: I used a [employer] Comprehensive reverse total shoulder arthroplasty system with a size 7 press fit micro humeral stem, a +6 offset humeral tray and a standard humeral bearing, a 25 mm baseplate with a 6.5 mm central screw and superior and inferior locking screws, and a size 36 mm eccentric glenosphere. Alisia arrived at [facility] for the above procedure. She was seen in the preoperative holding area and the operative extremity was identified and signed. She was given a preoperative antibiotic, TXA, and an interscalene nerve block. She was taken back to the operating room, laid on table in supine position, and put under general anesthesia. She was then put into the beachchair position. The shoulder was then prepped and draped in sterile fashion. A timeout was done and the patient and the operative extremity was properly identified. A deltopectoral approach was used. Dissection was taken down through the fascia and the deltoid was retracted laterally and the conjoined tendon was retracted medially. The anterior shoulder was exposed. The biceps groove was opened up and the biceps tendon was examined extensively. The biceps tendon demonstrated enlargement and inflammatory changes consistent with longstanding inflammation in the context of osteoarthritis and cuff arthropathy. The long head of the biceps tendon was then tenodesed to the upper border of the pectoralis major. This was a separate and distinct portion of the procedure. The subscapularis was then directly released off the lesser tuberosity with a peel technique. The inferior capsule was released and the humeral head was dislocated. A canal finding reamer was sent down the center of the humeral canal. Sequential reaming up to a size 7 reamer was done. Off that reamer, a proximal humeral resection guide was placed. The proximal humerus was resected at 135 of inclination and 25 of retroversion. Osteophytes were then removed and the glenoid was exposed. Time was spent doing a complete capsular and labral release. The glenoid guide was then placed in the inferior aspect of the glenoid. A 3.2 mm Steinmann pin was then placed into the glenoid vault at 10 of inclination. The glenoid baseplate was then reamed. The final size 25 mm baseplate was then impacted in the place. A 6.5 mm central screw was then placed followed by superior and inferior locking screws. A 36 mm eccentric glenosphere was then impacted into place. Surrounding soft tissues were then injected with 100 cc an orthopedic pain control cocktail. The proximal humerus was then exposed. Sequential broaching of the humerus up to a size 7 broach was done. Off that broach a +6 offset humeral tray was trialed. The shoulder was then reduced, brought through a full range of motion, and felt to be stable. The shoulder was then dislocated and the broach was removed. The final size 7 micro press-fit humeral stem was then impacted into place. A standard humeral bearing was then snapped onto a +6 offset humeral tray. The humeral tray was then impacted onto the humeral stem. The shoulder was once again reduced, brought through a full range of motion, and felt to be stable. The subscapularis was retracted and unable to be repaired. A dilute betadyne lavage was then done for 3 minutes. The joint was then irrigated with normal saline solution. Hemostasis was obtained. The interval was closed with 2-0 Vicryl suture. The skin was then closed with 2-0 Vicryl and ronnie. A Silverlon dressing was placed and the arm was rested in a regular arm sling. She was then extubated and transferred to a hospital bed. She taken to the postanesthesia care unit in stable condition. She tolerated the procedure well. Nayan Clancy PA-C, was present for the entire procedure. He was critical for patient positioning, prepping, draping, retraction exposure, wound closure and application of sterile dressing. I attest to the content of the Intraoperative Record and any orders documented therein. Any exceptions are noted below.
--- NOTE | 2024-02-12 13:16 | Anesthesiology Progress Note ---
Date of Service February 12, 2024 Anesthesia Post Procedure Vital Signs Vital Signs: Temp Pulse Pulse Resp BP BP Pulse Ox 02/12/24 12:45 68 21 123/54 L 92 02/12/24 12:15 67 22 128/52 L 96 02/12/24 11:45 97.5 F L 63 21 123/55 L 97 02/12/24 11:35 62 21 128/55 L 97 02/12/24 11:25 62 20 140/58 L 100 02/12/24 11:15 65 21 132/54 L 98 02/12/24 11:05 60 20 135/54 L 98 02/12/24 10:55 61 21 133/56 L 100 02/12/24 10:45 65 22 136/60 99 02/12/24 10:37 97.3 F L 66 21 150/54 H 100 02/12/24 08:12 98.1 F 71 20 179/79 H 97 O2 Del Method O2 Flow Rate 02/12/24 12:45 Room Air 2 02/12/24 12:15 Nasal Cannula 2 02/12/24 11:45 Room Air 02/12/24 11:35 Oxymask 2 02/12/24 11:25 Oxymask 3 02/12/24 11:15 Oxymask 3 02/12/24 11:05 Oxymask 3 02/12/24 10:55 Oxymask 3 02/12/24 10:45 Oxymask 6 02/12/24 10:37 Oxymask 6 02/12/24 08:12 Room Air Pain Intensity Right Shoulder: Pain Intensity: 5 Right Hip: Pain Intensity: 5 Transfer of Care Handoff Completed per policy Notes Mental Status: alert / awake / arousable and participated in evaluation Patient Amnestic to Procedure: Yes Nausea / Vomiting: adequately controlled Pain: adequately controlled Airway Patency, RR, SpO2: stable & adequate BP & HR: stable & adequate Hydration State: stable & adequate Anesthetic Complications: no major complications apparent and Pt Satisfied with anesthetic care
--- NOTE | 2024-02-12 14:05 | XRay Report ---
XR shoulder RT min 2V routine CLINICAL HISTORY: Post shoulder surgery COMPARISON STUDY: None. FINDINGS: Status post reverse right total shoulder arthroplasty. The hardware is intact. No fracture or dislocation. Skin ronnie are in place. IMPRESSION: Status post reverse right total shoulder arthroplasty. No evidence for hardware complica tion. ACT 112: Negative or not required by law. Electronically signed by: Loi Grijalva M.D. 02/12/2024 2:04 PM
[2024-02-12] MEDS ORDERED: METOCLOPRAMIDE HCL INJ 5 MG/ML 2 ML VIAL IV PRN (14:23)
[2024-02-12] MEDS ORDERED: NALOXONE HCL 0.4 MG/1 ML VIAL/CARP IV PRN (14:23)
[2024-02-12] MEDS ORDERED: bisacodyL 10 MG SUPP PR PRN (14:23)
[2024-02-12] MEDS ORDERED: MAGNESIUM HYDROXIDE SUSP 30 ML UDC PO PRN (14:23)
[2024-02-12] MEDS ORDERED: HYDROmorphone INJ 0.5 MG/0.5 ML SYR IV PRN (14:23)
[2024-02-12] MEDS ORDERED: traMADol HCL 50 MG TABLET PO PRN (14:23)
[2024-02-12] MEDS ORDERED: OXYBUTYNIN CHLORIDE XL 5 MG TABCR PO PRN (14:50)
[2024-02-12] MEDS: KETOROLAC TROMETHAMINE 15 MG/ML VIAL IV SCH (15:20)
[2024-02-12] MEDS: SODIUM CHLORIDE 0.9% 1,000 ML IV SCH (15:20)
[2024-02-12] MEDS: SENNA 8.6 MG TAB PO SCH (19:58)
[2024-02-12] MEDS: MAGNESIUM OXIDE 400 MG TAB PO SCH (19:58)
[2024-02-12] MEDS: AMITRIPTYLINE HCL 25 MG TAB PO SCH (19:58)
[2024-02-12] MEDS: METOPROLOL TARTRATE 25 MG TAB PO SCH (19:58)
[2024-02-12] MEDS: DOCUSATE SODIUM 100 MG CAP PO SCH (19:59)
[2024-02-12] MEDS: ZOLPIDEM TARTRATE 5 MG TAB PO PRN (21:17)
--- NOTE | 2024-02-13 07:22 | Orthopedic Progress Note ---
Date of Service February 13, 2024 Assessment & Plan (1) Status post reverse total replacement of right shoulder: She is doing well with the shoulder but unfortunately she is struggling a little bit with dyspnea and postoperative fatigue. She certainly does not feel capable of returning home. She is having some difficulty taking a deep breath and that may be secondary to the nerve block, however, her oxygen saturations seem to be okay and her vital signs are stable. Given her age and the fact that she lives alone, I would like the hospitalist to take a look at her and make sure that she is doing well enough medically before she can return home. I will continue to follow her closely. Елена Crump was seen and examined at bedside this morning. Overall her shoulder is doing fairly well but she is really struggling. She is having trouble taking a deep breath but her oxygen saturations are okay. She has significant fatigue. She lives alone and does not feel like she is able to return home. She had no other acute events overnight.. Review of Systems All systems reviewed & are unremarkable except as noted in HPI & below. Physical Exam On physical examination of the right shoulder, the dressing is clean and dry and she is wearing her sling as instructed. She is having some difficulty taking a deep breath. She has generalized fatigue and malaise.. Results & Data Results & Data Laboratory Results . Diagnostic Findings Postoperative x-rays of the right shoulder show the prosthesis to be in anatomic alignment without any evidence of fracture, cage, or loosening.. PG Care Time/CCT Total # of Minutes Spent Total Time Spent with Patient: Total time spent is greater than 50% in coordination of care (as documented) at patient's floor/unit and/or counseling patient: Coding Level of Care Code 78128 Post Operative Follow-Up Diagnoses Status post reverse total replacement of right shoulder Z96.611
[2024-02-13 08:19] LABS: Base Excess ABG -0.2 mEq/L (-9-1.8); HCO3 ABG 24 mmol/L (19-24); Oxygen Saturation ABG 95.1 % (90-95); PCO2 ABG 37 mmHg (35-46); PO2 ABG 65 mmHg (80-95); pH ABG 7.42 (7.35-7.45)
[2024-02-13 08:21] LABS: Allen Test Pos (Pos)
--- NOTE | 2024-02-13 09:17 | XRay Report ---
TWO VIEW CHEST CLINICAL HISTORY: Dyspnea. FINDINGS: PA and lateral chest radiographs are compared to study dated 01/19/2024. The heart is enlarg ed and noting atherosclerotic calcification of the thoracic aorta. The pulmonary vasculature is nonco ngested. The mitral annulus is densely calcified. There is elevation of the right hemidiaphragm and b ibasilar atelectasis. No airspace consolidation or pleural effusion is identified. There is no pneumo thorax. The skeletal structures are osteopenic. The bony thorax is grossly intact. A right shoulder a rthroplasty is in place. Skin clips, soft tissue edema, and subcutaneous gas overlying the right shou lder are expected postsurgical changes. IMPRESSION: 1. Bibasilar atelectasis with no acute cardiopulmonary abnormality identified. 2. Expected postsurgical change overlies the right shoulder status post arthroplasty placement. ACT 112: Negative or not required by law. Electronically signed by: Franco Chung M.D. 02/13/2024 9:16 AM
[2024-02-13] MEDS: dexAMETHasone 4 MG TAB PO SCH (09:53)
[2024-02-13] MEDS: ROSUVASTATIN CALCIUM 10 MG TAB PO SCH (09:53)
[2024-02-13] MEDS: TRIAMTERENE/HCTZ 37.5/25MG TAB PO SCH (09:53)
[2024-02-13] MEDS: dilTIAZem HCL 120 MG CAPCR PO SCH (09:54)
[2024-02-13] MEDS: MULTIVITAMIN TAB PO SCH (09:54)
[2024-02-13] MEDS: ASPIRIN 81 MG ECTAB PO SCH (09:54)
[2024-02-13] MEDS: OPTIRAY 320 125ml IV ONE (11:12)
--- NOTE | 2024-02-13 11:47 | CT Scan Report ---
CT ANGIOGRAM OF THE CHEST CLINICAL HISTORY: Dyspnea. Recent surgery. COMPARISON STUDY: Chest x-ray dated 02/13/2024. TECHNIQUE: Following the IV administration of 112 cc of Optiray 320, CT angiogram of the chest was pe rformed from the upper abdomen to the thoracic inlet utilizing the pulmonary embolus protocol. Images are reviewed in the axial, sagittal, and coronal planes. 3-D MIPS images are created and assessed. I V contrast was administered without complication. A dose lowering technique was utilized adhering to the principles of ALARA. The examination is compromised by motion artifact. CT DOSE: 587.73 mGy.cm FINDINGS: Thyroid: The thyroid gland is enlarged and heterogeneous, typical for goiter. Thoracic aorta: There is atherosclerotic calcification of the thoracic aorta, which is normal in reinaldo jalyn and demonstrates standard 3-vessel arch anatomy. No dissection is seen. Pulmonary vasculature: The pulmonary trunk is dilated, measuring 3.5 cm in diameter. This suggests pu lmonary artery hypertension. There are no filling defects identified in main, lobar, or segmental pul monary branches to suggest pulmonary embolus. Evaluation of the subsegmental branches is degraded by motion artifact. Heart: The heart is enlarged and without pericardial effusion. The coronary arteries and mitral annul us are densely calcified. Lungs and pleural spaces: Evaluation of the lung parenchyma is compromised by motion artifact. There is a small right pleural effusion with right basilar consolidation. Trace pleural fluid is seen on th e left. Intralobular septal thickening is noted. Foci of linear atelectasis are noted throughout both lungs. A calcified granuloma is noted at the right apex. Mediastinum: There is no mediastinal lymphadenopathy. Renu: Clear. Axillae: There is no axillary lymphadenopathy. Upper abdomen: Partially visualized upper abdominal viscera is within normal limits. Skeletal structures: The skeletal structures are osteopenic. No lytic or blastic bony lesions are see n. Degenerative change and kyphoscoliosis is noted in the thoracic spine. There are minimal chronic c ompression deformities of T3, T4, T6, and T12. A right shoulder arthroplasty is in place. Soft tissue edema and subcutaneous gas overlying the right shoulder are expected postsurgical changes. Arthritic change is noted in the left shoulder. IMPRESSION: 1. There is no evidence of pulmonary embolus in the main, lobar, or segmental pulmonary arteries. 2. Cardiomegaly with evidence of pulmonary artery hypertension. 3. Intralobular septal thickening suggests fluid overload/congestive change. Correlate clinically. 4. Small right and trace left pleural effusions with right basilar consolidation. This could represen t atelectasis versus pneumonia/aspiration pneumonitis. Clinical correlation will be required and radi ographic follow-up to resolution is recommended. 5. Additional foci of linear atelectasis are seen in both lungs. 6. Expected postsurgical change is seen overlying the right shoulder status post arthroplasty placeme nt. 7. Additional findings as above. ACT 112: Negative or not required by law. Electronically signed by: Franco Chung M.D. 02/13/2024 11:45 AM
--- NOTE | 2024-02-13 12:09 | Consultation ---
Date of Consultation February 13, 2024 Assessment & Plan (1) Volume overload state of heart: (2) Pulmonary hypertension: (3) PSVT (paroxysmal supraventricular tachycardia): (4) Hypertension: (5) Status post reverse total replacement of right shoulder: Plan Patient 83-year-old female status post right shoulder replacement with increasing dyspnea. Most likely due to volume overloaded state in the setting of pulmonary hypertension and probable valvular disease. No evidence of pulmonary embolism. Give 1 dose of IV Lasix. Continue to monitor patient's symptoms Testing as ordered above, additional basic laboratory studies things including BNP and CBC Patient history of paroxysmal supraventricular tachycardia, check EKG Anticipate patient symptoms improving with diuresis. Additional evaluation can be performed outpatient which may include updated echocardiogram and outpatient cardiology evaluation. Low suspicion for acute coronary syndrome at this time. Thank you for this consultation we will continue to follow with you. History of Present Illness Requesting Physician: Dr. Santiago Reason for Consultation: Shortness of breath after surgical procedure Attending Physician: Nayan Santiago, DO History of Present Illness Patient is an 83-year-old female who presented to [facility] yesterday to undergo right rotator cuff repair. Patient was observed overnight to make sure that her symptoms were controlled. This morning the patient complained of increasing shortness of breath with just walking to the bathroom and increasing fatigue. We requested to perform consultation to evaluate these complaints. Time my evaluation patient was sitting in the chair. She was on room air. And she was not tachycardic. However the patient was quite concerned that she seemed to be easily fatigued and had significant dyspnea with exertion. She denies any fevers. No significant cough. She states the only time this is ever happened before is when she has had Lyme disease. Allergies Allergy/AdvReac Type Severity Reaction Status Date / Time morphine Allergy Mild RASH & Verified 02/12/24 08:01 HALLUCINATIONS,VOMITING oxycodone AdvReac Severe VOMITING,DI Verified 02/12/24 08:01 ARRHEA Hlfdplz-KBR-QlD Reductase AdvReac Mild MUSCLE Verified 02/12/24 08:01 Inhibitor ACHES [Ayujeui-Nzp-Nja Reductase Inhibitor] wheat AdvReac Mild DIARRHEA-AVOIDS Verified 02/12/24 08:01 WHEAT Home Medications Medication Instructions Recorded Confirmed Type acetaminophen 500 mg tablet 1,000 mg PO QID PRN Pain 01/10/19 02/12/24 History (Tylenol Extra Strength) docusate sodium 100 mg capsule 100 mg PO QPM 01/10/19 02/12/24 History (Colace) magnesium oxide 400 mg PO QPM 01/10/19 02/12/24 History multivitamin 1 tab PO DAILY 01/10/19 02/12/24 History cyanocobalamin (vitamin B-12) 1,000 mcg PO QAM 02/06/19 02/12/24 History 1,000 mcg tablet aspirin 81 mg tablet,delayed 81 mg PO QAM 03/31/19 02/12/24 History release (Aspir-) ascorbic acid (vitamin C) 1,000 mg 1 gm PO QAM 04/25/19 02/12/24 History tablet metoprolol tartrate 25 mg tablet 12.5 mg (1/2 x 25 mg) PO BID #35 07/25/19 02/12/24 Rx tabs Lactobacillus acidophilus 10 10,000 mmu cells PO DAILY 01/01/24 02/12/24 History billion cell capsule (Probiotic) amitriptyline 25 mg tablet 25 mg PO HS 01/01/24 02/12/24 History coenzyme Q10 100 mg capsule 100 mg PO DAILY 01/01/24 02/12/24 History (CoQ-10) diltiazem HCl 120 mg 120 mg PO QAM 01/01/24 02/12/24 History capsule,extended release 24 hr rosuvastatin 10 mg tablet 10 mg PO QAM 01/01/24 02/12/24 History tolterodine 2 mg tablet (Detrol) 2 mg PO BID PRN bladder control 01/01/24 02/12/24 History triamterene 75 1 tab PO QAM 01/01/24 02/12/24 History mg-hydrochlorothiazide 50 mg tablet (Maxzide) cefadroxil 500 mg capsule 500 mg PO BID 10 days #20 caps 02/10/24 02/12/24 Rx tramadol 50 mg tablet 50 mg PO Q8H PRN pain #30 tabs 02/10/24 02/12/24 Rx Patient History Medical History Bowel incontinence History of claustrophobia History of Lyme disease Carotid artery stenosis PSVT (paroxysmal supraventricular tachycardia) Polymyalgia rheumatica History of anesthesia reaction Hx of constipation Hypercholesteremia History of angina Rotator cuff tear, right History of depression Hypertension Acid reflux disease History of colon cancer (2003) IBS (irritable bowel syndrome) Surgical History History of bilateral knee replacement History of colonoscopy Hx of removal of cyst Hx of LASIK Hx of bilateral cataract extraction History of colon resection (2003) History of dilatation and curettage History of bladder surgery H/O: hysterectomy Family History Mother Colorectal cancer Sister Colorectal cancer Osteoarthritis Myocardial infarction Aunt Breast cancer Other No pertinent family history Denies family history of Ovarian cancer Prostate cancer Social History Smoking Status: Never smoker Second Hand Exposure: No; Do You Dip or Chew Tobacco: No; Tobacco Cessation Education Requested by Patient: No Hx Alcohol Use: No Hx Substance Use: No Preferred Language: Latvian Communication Ability: Effective Visual Impairment: No Limitations Hearing Ability: Normal Hospital Admitting Clerk Required: No Beliefs That Will Affect Care: None marital status: / Current Living Situation: Alone current occupational status: retired Other Information That Helps Us Care for You: No Feels Safe at Home: Yes Safety Concerns: Feels Safe At This Time Dental Care, Regularly: No Seatbelt Use: always Sunscreen Use: Yes Assistive Devices: None Physical Exam Physical Exam: Constitutional: Alert, no acute distress, nontoxic, sitting in chair HEENT: Mucous membranes moist. Sclera clear Neck: Soft, no adenopathy Lungs: Decreased breath sounds at bases bilaterally right greater than left, few crackles and Rales at bases bilaterally, no wheezes CV: S1-S2, regular, systolic murmur Abdomen: Soft, nontender, nondistended Extremities: No significant edema in lower extremities Musculoskeletal: Right upper extremity in immobilizer, surgical dressing is dry Neuro: No focal deficits Psych: Cooperative, normal mood Results & Data Vital Signs (Past 12 Hours) Vital Signs Temp Pulse Resp BP Pulse Ox O2 Del Method 02/13/24 08:20 36.7 C 73 16 111/65 93 Room Air 02/13/24 07:35 Room Air 02/13/24 03:50 36.5 C 84 18 116/63 92 Room Air Diagnostic Findings Reviewed imaging, laboratory and diagnostic studies. Pertinent findings as below. Personally reviewed chest x-ray, questionable some vascular congestion, no consolidative infiltrate Reviewed CTA of the chest report, no PE, evidence of volume overload and some small pleural effusions. Also evidence of pulm hypertension Reviewed ABG, mild hypoxia, pO2 65 Reviewed echocardiogram from 2019, normal ejection fraction Intake and output +1.2 L
[2024-02-13] MEDS ORDERED: LORazepam 0.5 MG TAB PO PRN (12:26)
[2024-02-13] MEDS: FUROSEMIDE 40 MG/4 ML VIAL IV ONE (12:32)
[2024-02-13 13:19] LABS: Hematocrit (blood only) 36.9 % (37.0-47.0); Hemoglobin 12.3 g/dl (12.0-16.0); Mean Corpuscular Hemoglobin 29.9 pg (25.0-34.0); Mean Corpuscular Hgb Conc 33.3 g/dL (32.0-36.0); Mean Corpuscular Volume 89.8 fL (80.0-100.0); Mean Platelet Volume 9.2 fL (9.4-12.4); Platelet Count 241 K/uL (130-400); RDW Coefficient of Variation 12.1 % (11.5-14.5); RDW Standard Deviation 39.5 fL (36.4-46.3); Red Blood Count 4.11 M/uL (4.20-5.40); White Blood Count 15.71 K/ul (4.8-10.8)
[2024-02-13 13:31] LABS: BUN Creatinine Ratio 22.9 (10-20); Calcium 9.3 mg/dl (8.6-10.3); Creatinine Clr Calc Pharmacy 33.7 ml/min; Est GFR (African American) 56.9 ml/min; Est GFR (Non-African American) 49.1 ml/min; Magnesium 1.8 mg/dl (1.7-2.4); Potassium 4.4 mmol/L (3.5-5.1)
[2024-02-13 13:43] LABS: Basophils # (auto) 0.01 K/uL (0.00-0.20); Basophils % (auto) 0.1 %; Immature Granulocytes # (auto) 0.14 K/uL (0.01-0.20); Immature Granulocytes % (auto) 0.9 %; Lymphocytes # (auto) 0.41 K/uL (1.20-3.40); Lymphocytes % (auto) 2.6 %; Monocytes # (auto) 0.23 K/uL (0.11-0.59); Monocytes % (auto) 1.5 %; Neutrophils # (auto) 14.92 K/uL (1.40-6.50); Neutrophils % (auto) 94.9 %
[2024-02-14 06:57] LABS: Hemoglobin 12.7 g/dl (12.0-16.0); Mean Corpuscular Hemoglobin 29.8 pg (25.0-34.0); Mean Corpuscular Hgb Conc 32.6 g/dL (32.0-36.0); Mean Corpuscular Volume 91.5 fL (80.0-100.0); Mean Platelet Volume 9.4 fL (9.4-12.4); Platelet Count 346 K/uL (130-400); RDW Coefficient of Variation 12.2 % (11.5-14.5); RDW Standard Deviation 40.9 fL (36.4-46.3); Red Blood Count 4.26 M/uL (4.20-5.40); White Blood Count 13.51 K/ul (4.8-10.8)
[2024-02-14 07:14] LABS: BUN Creatinine Ratio 37.4 (10-20); Calcium 9.3 mg/dl (8.6-10.3); Creatinine Clr Calc Pharmacy 30.8 ml/min; Magnesium 2.2 mg/dl (1.7-2.4)
--- NOTE | 2024-02-14 08:43 | Orthopedic Progress Note ---
Date of Service February 14, 2024 Assessment & Plan (1) Status post reverse total replacement of right shoulder: She is feeling better today. Will see how she does today with physical therapy. If she does well enough with physical therapy, and if she is cleared by the hospitalist, she could possibly go home today. She is also open to the idea of possibly going home tomorrow. She does not want to go to a rehab facility, however, I told her if she is not able to work well with physical therapy then she may still have to go to a rehab facility. She understands that. She does live alone. She has neighbors and friends that live nearby. Will see how she does today with therapy and how she does with her medical status. The discharge instructions are done if she is able to be discharged today but that is up to physical therapy and the hospitalist. Елена Crump was seen and examined at bedside this morning. Overall she said she is feeling better. She is able to take deeper breaths. Unfortunately, she did not do well yesterday with physical therapy. They recommended rehab placement. She does not want to go to rehab.. Review of Systems All systems reviewed & are unremarkable except as noted in HPI & below. Physical Exam On physical examination of the right shoulder, she has active motion of her hand and her wrist. She is wearing her sling as instructed. The dressing is clean and dry.. Results & Data Results & Data Laboratory Results . Diagnostic Findings . PG Care Time/CCT Total # of Minutes Spent Total Time Spent with Patient: Total time spent is greater than 50% in coordination of care (as documented) at patient's floor/unit and/or counseling patient: Coding Level of Care Code 80840 Post Operative Follow-Up Diagnoses Status post reverse total replacement of right shoulder Z96.611
--- NOTE | 2024-02-14 10:31 | Hospitalist Progress Note ---
Date of Service February 14, 2024 Assessment & Plan (1) Volume overload state of heart: (2) Pulmonary hypertension: (3) PSVT (paroxysmal supraventricular tachycardia): (4) Hypertension: (5) Status post reverse total replacement of right shoulder: Plan Patient significantly improved, suspect component of volume overload from IV fluids received in the operating room in the setting of chronic pulmonary hypertension. Patient on room air. Vital signs stabilized. Medically able to be discharged home with outpatient follow-up and home health care Recommend continuing home medications as prior to admission. Follow-up echocardiogram report as outpatient with PCP Admission and Anticipated Discharge Date Admission Date: February 12, 2024 Subjective Patient significantly improved. Shortness of breath significantly improved. She reports she did 2 laps in the hallway without significant symptoms. She is extremely anxious and concerned about her exposure to COVID with her roommate. Physical Exam Physical Exam: Constitutional: Alert HEENT: Mucous membranes moist. Lungs: Clear to auscultation, decreased, no wheezes rales or rhonchi CV: S1-S2, regular Abdomen: Soft, nontender, nondistended Extremities: No significant edema, right upper extremity in immobilizer Neuro: No focal deficits Psych: Cooperative, anxious Results & Data Results & Data Vital Signs (Past 12 Hours) Vital Signs Temp Pulse Resp BP Pulse Ox O2 Del Method 02/14/24 08:57 36.7 C 86 16 185/78 H 92 Room Air Diagnostic Findings Reviewed imaging, laboratory and diagnostic studies. Pertinent findings as below. Sodium 130, significantly improved BMP stable CTA of the chest that shows some congestion but no PE Echocardiogram pending
--- NOTE | 2024-02-14 12:41 | Electrocardiogram Report ---
Test Reason : Blood Pressure : / mmHG Vent. Rate : 075 BPM Atrial Rate : 075 BPM P-R Int : 158 ms QRS Dur : 078 ms QT Int : 398 ms P-R-T Axes : 050 039 054 degrees QTc Int : 444 ms Normal sinus rhythm Normal ECG When compared with ECG of 19-JAN-2024 12:32, T wave amplitude has decreased in Inferior leads Confirmed by David Stern ([id number]) on 02/14/2024 12:41:05 PM Referred By: Nayan Santiago Confirmed By:David Stern
--- NOTE | 2024-02-15 06:28 | Discharge Summary ---
Date of Service February 15, 2024 Admission HPI (Per Admitting) Alisia is a pleasant 83-year-old female who has been dealing with chronic worsening right shoulder pain. X-rays do not look too bad. I diagnosed her clinically with a large rotator cuff tear. She is having trouble sleeping at night. She is having trouble doing any activities away from her body or up overhead. 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 After failing conservative treatment, she has elected proceed with a right reverse shoulder arthroplasty. Admission Exam (Per Admitting) On physical examination of the right shoulder, she has decreased range of motion. She has 3 out of 5 motor strength with full can test and external rotation.. Principal Diagnosis Same as "Discharge Diagnosis" noted below under Discharge Instructions. Discharge Exam On physical examination of the right shoulder, she has active motion of her hand and her wrist. She is wearing her sling as instructed. The dressing is clean and dry.. Discharge Data Consultations 02/13/24 07:19 Consult Hospitalist Routine Procedures Performed Operation Date: 02/12/24 09:00 Actual Procedures p Right Reverse Total Shoulder Arthroplasty(Right) - Nayan Santiago DO Ordered Studies 02/12/24 05:00 US - OR guided needle placemen Routine 02/13/24 09:28 CT angio chest PE protocol Routine Hospital Course (1) Status post reverse total replacement of right shoulder: On February 12, 2024 [address] arrived at [facility] and underwent a right reverse shoulder replacement without complication. She had a general anesthetic. Postoperatively she was placed in a sling and transferred to the general orthopedic floors. On postop day #1, she was complaining of trouble breathing and generalized fatigue. She does live alone. The hospitalist was consulted and she was diagnosed with fluid overload. She was given diuresis and improved. She did not do well with physical therapy the first day. On postop day #2 she was doing much better. Her breathing was improved and she had more energy. She was seen by physical therapy and able to participate in ambulation and range of motion exercises. She was seen by the hospitalist as well and cleared for discharge to home. She was then discharged home. She will follow- up with orthopedics in 2 weeks. PG Care Time/CCT Total # of Minutes Spent Total Time Spent with Patient: Total time spent is greater than 50% in coordination of care (as documented) at patient's floor/unit and/or counseling patient: Discharge Plan Discharge Items Patient Disposition: Home - Self-Care Reason For Visit: Right Shoulder Degerative Joint Disease Discharge Diagnosis: Right reverse shoulder replacement Activity: Per Instructions section Non-emergency contact: Surgeon Call non-emergency contact if: your wound has increased redness and your wound has increased drainage Follow-up/Referrals: Stephani Tobias, [Primary Care Provider] - Diet: Regular Addtl Attending Provider Instructions: Activity and Therapy Recommendations: * If you are using [facility] then therapy will be provided at your home until they feel you have accomplished all of your goals. * If you are using [facility] then Physical Therapy will be provided until they feel you are ready to start Outpatient Physical Therapy. * If you are not using home therapy then Outpatient Physical Therapy should start about 3-5 days from your day of surgery. Therapy will last about 8-12 weeks * Wear your sling for 3 weeks, unless otherwise instructed. You may remove your sling to shower and to dress, but otherwise, you should be in your sling at all times, including while sleeping * The shoulder replacement is very stable and you can use your hand while in the sling * You were shown a series of exercises in the hospital. Do these exercises daily including the exercises you were shown in physical therapy. Medications: * Narcotic You will likely be sent home from the hospital with a prescription for the narcotic pain medication that worked best throughout your stay. * Cefadroxil -take the antibiotic twice a day for 10 days to help prevent infection. * Other medications may be prescribed for specific circumstances. If you have any questions, please call the office at . * Resume previous home medications unless otherwise instructed Dressing Care: Leave the Silverlon dressing in place for 7 days. After 7 days you may remove the dressing. If the incision is not draining then you may leave the ronnie open to air. If there is a little bit of drainage or if the ronnie are getting stuck on your clothing then cover the incision with a dry dressing. The ronnie will be removed at your 2 week follow-up appointment. Showering: You may shower with the Silverlon dressing in place. Do not let the shower spray hit the dressing directly. Pat the Silverlon dressing dry. If the dressing becomes wet underneath, then simply remove the dressing. Keep t he incision dry until you are 7 days out from the day of surgery. After 7 days you may remove the Silverlon dressing and shower with the ronnie exposed. Let soapy water run over the ronnie and pat them dry. Do not scrub or soak the incision. Things To Watch For: * Drainage from the incision site that occurs more than one week after your surgery. * Increased redness at the incision site. * Fever above 102 degrees Fahrenheit. * Unusual chest pain or shortness of breath. * Call [facility] at with any of the above probl ems Follow-Up Visit: Follow-up with Dr. Santiago's PA (Nayan Clancy) 2-3 weeks after your day of surgery. He will remove your ronnie and answer any questions. If you have any additional questions or concerns, Dr Santiago is usually in the office at the same time and will be available An appointment was probably scheduled when you signed-up for surgery in the office. If you have any questions call More detailed instructions as well as Frequently Asked Questions were provided in a folder by our office when you signed-up for surgery. Please review these instructions when you get home. If you have any further questions or concerns, please feel free to call the office at [phone] Pending Studies at Discharge: No Stand-Alone Forms: My [facility], Pain - Opioid Pain Management, Smoking Cessation Medications and DC Order Prescriptions: Continued metoprolol tartrate 25 mg tablet 12.5 mg PO BID Qty: 35 0RF cefadroxil 500 mg capsule 500 mg PO BID 10 Days Qty: 20 0RF Rx Instructions: postop tramadol 50 mg tablet 50 mg PO Q8H PRN (Reason: pain) Qty: 30 0RF ascorbic acid (vitamin C) 1,000 mg tablet 1 gm PO QAM cyanocobalamin (vitamin B-12) 1,000 mcg tablet 1,000 mcg PO QAM aspirin [Aspir-81] 81 mg tablet,delayed release (DR/EC) 81 mg PO QAM Patient Comments: 81 mg PO THURSDAY, THURSDAY, AND THURSDAY; TAKES THU, THU, FRI multivitamin Tablet 1 tab PO DAILY acetaminophen [Tylenol Extra Strength] 500 mg Tablet 1,000 mg PO QID PRN (Reason: Pain) docusate sodium [Colace] 100 mg Capsule 100 mg PO QPM magnesium oxide 400 mg magnesium Tablet 400 mg PO QPM tolterodine [Detrol] 2 mg Tablet 2 mg PO BID PRN (Reason: bladder control) diltiazem HCl 120 mg capsule,extended release 24hr 120 mg PO QAM coenzyme Q10 [CoQ-10] 100 mg Capsule 100 mg PO DAILY rosuvastatin 10 mg Tablet 10 mg PO QAM Probiotic 10 billion cell Capsule 10,000 mmu cells PO DAILY amitriptyline 25 mg tablet 25 mg PO HS Rx Instructions: TAKE 1 TABLET BY MOUTH DAILY. triamterene-hydrochlorothiazid [Maxzide] 75-50 mg tablet 1 tab PO QAM Discharge Orders: Discharge Order (Routine); Ordered 02/14/24 Ordered By: Nayan Valdez/Other Patient Handouts: DVT Post Op Prevention Admission Data Admit Date/Time: 02/12/24 10:27 Attending Provider: Nayan Santiago Admit Provider: Nayan Santiago Primary Care Provider: Stephani Tobias Other Providers: [facility]; Melody Knight; Anuja Ochoa I.; Abdiaziz Alexander; Angella Valenzuela; Selina Joy; Chana Cassidy; Negra Bustillos; Joo Ellis; Dylan Kinney; Kadeem Henderson; Robin Barth; Trish Milan; Adi Lazo; Janessa Arboleda; Sadia Pro; Yelitza More; Declan Tinsley; Nadine Jackson; Bandar Davies; Carmela Espinoza I.; Juanjose Gao; Wale Chaudhari; Higinio Owen; Rigoberto Fonseca; Balaji Arellano; Alfredo Price; Heather Jack; Ila Healy; Maribell Denny; Calin Galicia; Dilan Curiel Other Interventions: Discharge Summary Assessment (RN) Last Done: 02/14/24 10:47
== END 2024-02-14 14:12 | disposition home or self-care (01) ==
LOC: PACUINP 07:18 → ASU 07:18 → 3N 14:17